=== PATIENT | male | born 1945 | race Caucasian/White ===

== ENCOUNTER 2017-12-06 12:27 | Inpatient (IN) | payer MEDICARE ==
[~2017-12-06] VITALS: Ht 180.3 cm; Wt 77.3 kg
--- NOTE | ~2017-12-06 | PN ---
PATIENT:WINSTON HART MEDICAL RECORD: [id number] LOCATION:[facility] ADMISSION DATE: 12/06/17 PROGRESS NOTE DATE OF SERVICE: 12/18/2017 SUBJECTIVE: No new complaint. OBJECTIVE: The patient is pleasant on approach. Mood is euthymic. Affect is bland. Speech tends to be tangential and circumstantial as usual. Content of thought is unchanged. Sensorium is unchanged. ASSESSMENT: No change in diagnosis. PLAN: 1. Maintain all current medications. 2. Continue supportive therapy. TRANSINT:[id number] Voice Confirmation ID: [id number] DOCUMENT ID: [id number] MALA CLIFTON III, MD at 0911 CC: [id number] DICTATION DATE: 12/18/17 1145 AVIATION SAFETY TECHNICIAN: 12/18/17 1237 ADM IN [place] [id number] [place] [address]
--- NOTE | ~2017-12-06 | PN ---
PATIENT:WINSTON HART MEDICAL RECORD: [id number] LOCATION:[facility] ADMISSION DATE: 12/06/17 PROGRESS NOTE DATE OF SERVICE: 12/09/2017 SUBJECTIVE: No new complaint. OBJECTIVE: The patient has been passively cooperative. Staff report that he has been fairly pleasant. He is quiet most of the time. Additional history obtained states that the patient actually had been at the [facility] psychiatric unit in the past. On exam, mood is euthymic. Affect is very reserved and childlike. Speech is somewhat terse. Content of thought is negative for overt psychosis. There is some nonspecific paranoia. Sensorium shows no change. ASSESSMENT: No change in diagnosis. PLAN: 1. Continue current medication. 2. Continue supportive therapy. TRANSINT:[id number] Voice Confirmation ID: [id number] DOCUMENT ID: [id number] MALA CLIFTON III, MD at 1007 CC: [id number] DICTATION DATE: 12/09/17 1141 PLANT OPERATOR/SHIFT SUPERVISOR: 12/09/17 1149 ADM IN [place] [place] [address]
--- NOTE | ~2017-12-06 | PN ---
PATIENT:WINSTON HART MEDICAL RECORD: [id number] LOCATION:[facility] ADMISSION DATE: 12/06/17 PROGRESS NOTE DATE OF SERVICE: 12/12/2017 SUBJECTIVE: No new complaint noted. OBJECTIVE: The patient continues to do well. Tolerating medications without difficulty. Behavior has been under good control. On exam, mood is euthymic. Affect is reserved. Speech is highly circumstantial. Content of thought continues to exhibit moderate delusional ideation, but the patient does not give evidence of hostility or aggressiveness. Sensorium is unchanged. ASSESSMENT: No change in diagnosis. PLAN: 1. Continue current medication. 2. Continue supportive therapy. TRANSINT:[id number] Voice Confirmation ID: [id number] DOCUMENT ID: [id number] MALA CLIFTON III, MD at 1101 CC: [id number] DICTATION DATE: 12/12/17 1058 STRING STUDIES DIRECTOR: 12/12/17 1125 ADM IN [place] [address] [place] [address]
--- NOTE | ~2017-12-06 | PN ---
PATIENT:WINSTON HART MEDICAL RECORD: [id number] LOCATION:[facility] ADMISSION DATE: 12/06/17 PROGRESS NOTE DATE OF SERVICE: 12/20/2017 SUBJECTIVE: The patient's case was discussed with staff. He has no new complaint. OBJECTIVE: The patient is somewhat paranoid and hypervigilant, but is denying overt psychotic symptoms. He is tolerating his medications well. ASSESSMENT: No change in diagnoses. PLAN: The patient has been living with his sister who is also mentally ill. They do not get along with each other. His niece is willing to let him live with her and he is agreeable to this. She is requesting discharge today and I think that is reasonable as there are no positive symptoms that need to be addressed currently. The negative symptoms are very prominent, but again those are things that have to be treated outside of a hospital setting if they can even be addressed at all. TRANSINT:[id number] Voice Confirmation ID: [id number] DOCUMENT ID: [id number] KEISHA LORENZANA MD at 0949 CC: [id number] DICTATION DATE: 12/20/17 1224 DUTY OFFICER: 12/20/17 1230 DIS IN 12/20/17 [address] [place] [address]
--- NOTE | ~2017-12-06 | PN ---
PATIENT:WINSTON HART MEDICAL RECORD: [id number] LOCATION:[facility] ADMISSION DATE: 12/06/17 PROGRESS NOTE DATE OF SERVICE: 12/19/2017 SUBJECTIVE: No new complaint. OBJECTIVE: The patient continues to do well. We are in the process of securing placement. An attempt will be made at senior care placement. On exam, mood is euthymic. Affect is bland, somewhat constricted. Speech tends to be circumstantial. Content of thought is negative for overt psychosis. Sensorium unchanged. ASSESSMENT: No change in diagnosis. PLAN: 1. Continue current medication. 2. Continue supportive therapy. TRANSINT:[id number] Voice Confirmation ID: [id number] DOCUMENT ID: [id number] MALA CLIFTON III, MD at 1105 CC: [id number] DICTATION DATE: 12/19/17 1107 FINE CRAFT ARTIST: 12/19/17 1123 DIS IN 12/20/17 [place] [address] [place] [address]
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
--- NOTE | ~2017-12-06 | PN ---
PATIENT:WINSTON HART MEDICAL RECORD: [id number] LOCATION:[facility] ADMISSION DATE: 12/06/17 PROGRESS NOTE DATE OF SERVICE: 12/14/2017 SUBJECTIVE: The patient's case was discussed with staff. He has no new complaint. OBJECTIVE: The patient denies intent to harm himself or others. He generally tolerates his medicines well. Eye contact is fair. ASSESSMENT: No change in diagnoses. PLAN: Current medicines and therapies have been reviewed and will be maintained. I anticipate he can be transitioned out of the hospital soon if this level of improvement is maintained. TRANSINT:[id number] Voice Confirmation ID: [id number] DOCUMENT ID: [id number] KEISHA LORENZANA MD at 1417 CC: [id number] DICTATION DATE: 12/14/17 1020 MASH TUB COOKER: 12/14/17 1219 ADM IN [place] [address] [place] [id number]
--- NOTE | ~2017-12-06 | PN ---
PATIENT:WINSTON HART MEDICAL RECORD: [id number] LOCATION:[facility] ADMISSION DATE: 12/06/17 PROGRESS NOTE DATE OF SERVICE: 12/13/2017 SUBJECTIVE: The patient's case was discussed with staff. He has no new complaint. OBJECTIVE: The patient is denying overt psychotic symptoms as well as any paranoid thoughts. He is tolerating his medicines well. ASSESSMENT: No change in diagnoses. PLAN: The patient is in good behavioral control. He has limited insight about his condition. He is tolerating his medicines well. I am not sure about the situation at home if it is an appropriate level of supervision, but I am going to anticipate that he could reasonably be transitioned out of the hospital soon if this level of improvement is maintained. TRANSINT:[id number] Voice Confirmation ID: [id number] DOCUMENT ID: [id number] KEISHA LORENZANA MD at 0956 CC: [id number] DICTATION DATE: 12/13/17 1328 FAMILY PSYCHOLOGIST: 12/13/17 1346 ADM IN [place] [id number] [place] [address]
--- NOTE | ~2017-12-06 | PN ---
PATIENT:WINSTON HART MEDICAL RECORD: [id number] LOCATION:[facility] ADMISSION DATE: 12/06/17 PROGRESS NOTE DATE OF SERVICE: 12/11/2017 SUBJECTIVE: No new complaint. OBJECTIVE: The patient is continuing to do well. He is tolerating medications without difficulty. On exam, mood is euthymic. Affect is bland. Speech is somewhat terse. Content of thought is negative for overt psychosis. Sensorium unchanged. ASSESSMENT: No change in diagnosis. PLAN: 1. Continue current medication. 2. Continue supportive therapy. TRANSINT:[id number] Voice Confirmation ID: [id number] DOCUMENT ID: [id number] MALA CLIFTON III, MD at 1027 CC: [id number] DICTATION DATE: 12/11/17 1055 ENTRY ANALYST: 12/11/17 1115 ADM IN [facility] [address] [place] [address]
--- NOTE | ~2017-12-06 | PN ---
PATIENT:WINSTON HART MEDICAL RECORD: [id number] LOCATION:[facility] ADMISSION DATE: 12/06/17 PROGRESS NOTE DATE OF SERVICE: 12/10/2017 SUBJECTIVE: No new complaint. OBJECTIVE: The patient has remained pleasant and cooperative. He reports that he is no longer having nightmares. His sleep is much improved. On exam today, the patient exhibits a euthymic mood and affect is very constricted. Speech is very circumstantial. Content of thought is negative for overt psychosis. The patient is oriented to time, place and person. Memory appears to be relatively intact. ASSESSMENT: No change in diagnosis. PLAN: 1. Maintain current medication. 2. Anticipate discharge later this week. TRANSINT:[id number] Voice Confirmation ID: [id number] DOCUMENT ID: [id number] MALA CLIFTON III, MD at 0951 CC: [id number] DICTATION DATE: 12/10/17 1116 PROCESS DESIGN CHEMICAL ENGINEER: 12/10/17 1308 ADM IN [place] [id number] [place] [address]
--- NOTE | ~2017-12-06 | DS ---
PATIENT:WINSTON HART :43 MEDICAL RECORD: [id number] DISCHARGE SUMMARY ADMISSION DATE: 12/06/17 DISCHARGE DATE: 12/20/17 DATE OF ADMISSION: 12/06/2017 DATE OF DISCHARGE: 12/20/2017 HISTORY OF PRESENT ILLNESS: First Group Home admission for this 72-year-old single white male. The patient had a previous history of schizophrenia. He had lived with his sister for a number of years. He had been single all of his life. The patient had discontinued his antipsychotic medication several weeks prior to admission and had become increasingly paranoid, agitated and hostile. Because of worsening behavior and the need to readjust medication, the patient was admitted. COURSE IN THE HOSPITAL: The patient was evaluated by Dr. Katy Davies. She noted the presence of hypertension, vitamin D deficiency and type 2 diabetes. From a medication standpoint, the patient was placed back on his Zyprexa 10 mg twice a day. He was given trazodone 100 mg h.s. for insomnia. He was kept on lisinopril 10 mg daily for his hypertension and was also given Dyazide 37.5 one tab daily and Zyrtec for his allergies. The patient showed a good resolution of his hostility and paranoia. He did not give evidence of dementia. He was pleasant and responsive. Typically, his speech was somewhat rambling and usually had to do with memories of his family from the past. At the time of discharge, the patient was felt stable enough to be returned to the outpatient environment. He did not qualify for long-term placement, but the sister is going to look into alternatives. FINAL DIAGNOSES: AXIS I: Schizophrenia, paranoid type. AXIS II: No diagnosis. AXIS III: Hypertension, allergic rhinitis, vitamin D deficiency. AXIS IV: Moderate. AXIS V: 46. PLAN: 1. Continue all current medication. 2. Follow up with primary care at [facility]. 3. Diet and activities as tolerated. TRANSINT:[id number] Voice Confirmation ID: [id number] DOCUMENT ID: [id number] MALA CLIFTON III, MD at 2046 CC: [id number] DICTATION DATE: 01/07/18 1039 GEAR MILLING MACHINE SET UP OPERATOR: 01/07/18 1242 DIS IN 12/20/[id number] [facility] [address]
--- NOTE | ~2017-12-06 | PN ---
PATIENT:WINSTON HART MEDICAL RECORD: [id number] LOCATION:[facility] ADMISSION DATE: 12/06/17 PROGRESS NOTE DATE OF SERVICE: 12/16/2017 SUBJECTIVE: No new complaint. OBJECTIVE: The patient continues to do well. No problems have been noted. He remains cooperative with staff. On exam, mood is pleasant. Affect is bland. Speech is somewhat terse. Content of thought is negative for overt psychosis at the moment. Sensorium is relatively clear. ASSESSMENT: No change in diagnosis. PLAN: 1. Continue current medication. 2. Continue supportive therapy. TRANSINT:[id number] Voice Confirmation ID: [id number] DOCUMENT ID: [id number] MALA CLIFTON III, MD at 0913 CC: [id number] DICTATION DATE: 12/16/17 1158 RESIDENT DIRECTOR: 12/16/17 1222 ADM IN [place] [id number] [place] [id number]
--- NOTE | ~2017-12-06 | PN ---
PATIENT:WINSTON HART MEDICAL RECORD: [id number] LOCATION:[facility] ADMISSION DATE: 12/06/17 PROGRESS NOTE DATE OF SERVICE: 12/17/2017 SUBJECTIVE: No new complaint noted. OBJECTIVE: The patient continues to be cooperative. Discharge planning is actively involved in placement. On exam, mood is euthymic. Affect is rather reserved. Speech tends to be somewhat tangential. Content of thought is unchanged. Sensorium unchanged. ASSESSMENT: No change in diagnosis. PLAN: 1. Continue current medication. 2. Continue supportive therapy. TRANSINT:[id number] Voice Confirmation ID: [id number] DOCUMENT ID: [id number] MALA CLIFTON III, MD at 0625 CC: [id number] DICTATION DATE: 12/17/17 1131 POWER SWEEPER OPERATOR: 12/17/17 1140 ADM IN [place] [id number] [place] [address]
[2017-12-06 13:51] VITALS: BP 154/62; BMI 23.8
[2017-12-06 14:29] VITALS: BMI 23.8
[2017-12-06] MEDS ORDERED: DESERYL100 MG PO (14:57)
[2017-12-06] MEDS ORDERED: DYAZIDE 37.5/251 CAP PO (14:58)
[2017-12-06 14:59] LABS: BASOPHILS 0.2 % (0-2); EOSINOPHILS 4.3 % (0-7); HEMATOCRIT 36.5 % (42.0-54.0); IMMATURE GRANULOCYTES 0.4 % (0-5); LYMPHOCYTES 24.7 % (15-50); MCH 30.4 pg (26.0-34.0); MCHC 32.9 g/dL (31.0-37.0); MCV 92.4 fL (80.0-100.0); MEAN PLATELET VOLUME 9.6 fL (7.4-10.4); MONOCYTES 9.8 % (2-11); NEUTROPHILS 60.6 % (40-80); PLATELET COUNT 222 10x3/uL (130-400); RBC 3.95 10x6/uL (4.20-6.10); RDW 13.2 % (11.5-14.5); WBC 5.3 10x3/uL (4.8-10.8)
[2017-12-06] MEDS ORDERED: ZYPREXA10 MG PO (14:59)
[2017-12-06] MEDS ORDERED: ZYRTEC10 MG PO (15:00)
[2017-12-06 16:23] LABS: APPEARANCE CLEAR (CLEAR); BILIRUBIN NEGATIVE (NEGATIVE); COLOR YELLOW (YELLOW); GLUCOSE NEGATIVE (NEGATIVE); KETONE NEGATIVE (NEGATIVE); NITRITE NEGATIVE (NEGATIVE); PROTEIN NEGATIVE (NEGATIVE); UROBILINOGEN NORMAL (NORMAL)
[2017-12-06 16:24] LABS: ALKALINE PHOSPHATASE 88 U/L (46-116); ALT (SGPT) 25 U/L (10-68); CALC OSMOLALITY 277 mosm/kg (275-300); CARBON DIOXIDE 25.3 mmol/L (21.0-32.0); CHLORIDE - SERUM 100 mmol/L (98-107); CHOL - HDL RATIO 3.3 ratio (2.3-4.9); CHOLESTEROL, TOTAL 151 mg/dL (0-200); GLUCOSE 122 mg/dL (74-106); HDL CHOLESTEROL 46 mg/dL (32-96); LDL CHOLESTEROL 87 mg/dL (0-100); LDL-HDL RATIO 1.9 ratio (1.5-3.5); POTASSIUM - SERUM 4.3 mmol/L (3.5-5.1); PROTEIN - SERUM 7.2 g/dL (6.4-8.2); SODIUM 137 mmol/L (136-145); THYROID STIMULATING HORMONE 0.62 uIU/mL (0.36-3.74); TRIGLYCERIDE 92 mg/dL (30-200); UREA NITROGEN 22 mg/dL (7-18); eGFR NON AFRICAN AMERICAN 78 mL/min (90-120)
[2017-12-06 19:26] VITALS: BP 152/58
[2017-12-07 11:19] VITALS: BMI 23.7
[2017-12-07 12:18] VITALS: BP 130/65
[2017-12-07 19:33] VITALS: BP 107/47
[2017-12-08 07:00] VITALS: BP 150/63
[2017-12-08 20:11] VITALS: BP 155/47
[2017-12-09 07:00] VITALS: BP 145/64
[2017-12-09 08:09] LABS: VITAMIN D 25 HYDROXY 35.9 ng/mL (30.0-100.0)
[2017-12-09 11:14] LABS: FOLATE (FOLIC ACID) - SERUM 12.1 ng/mL (>3.0)
[2017-12-09 19:39] VITALS: BP 165/77
[2017-12-10 03:10] LABS: RAPID PLASMA REAGIN Non Reactive (Non Reactive)
[2017-12-10 09:08] VITALS: BP 145/73
[2017-12-10 19:36] VITALS: BP 126/65
[2017-12-11 10:02] VITALS: BP 146/70
[2017-12-11 19:51] VITALS: BP 153/76
[2017-12-12 10:30] VITALS: BP 137/68
[2017-12-12 20:07] VITALS: BP 154/62
[2017-12-13 09:18] VITALS: BP 149/80
[2017-12-13 09:38] VITALS: BP 149/80
[2017-12-13 19:43] VITALS: BP 172/58
[2017-12-14 10:42] VITALS: BP 121/69
[2017-12-14 20:16] VITALS: BP 124/60
[2017-12-15 08:27] VITALS: BP 119/100
[2017-12-15 19:26] VITALS: BP 122/58
[2017-12-16 07:00] VITALS: BP 149/66
[2017-12-16 19:56] VITALS: BP 125/60
[2017-12-17 07:56] VITALS: BP 113/74
[2017-12-17 19:55] VITALS: BP 142/61
[2017-12-18 09:28] VITALS: BP 124/69
[2017-12-18 19:33] VITALS: BP 137/61
[2017-12-18 19:41] VITALS: BP 137/61
[2017-12-19 08:30] VITALS: BP 112/57
[2017-12-19 21:13] VITALS: BP 132/63
[2017-12-20 08:30] VITALS: BP 131/83
[2017-12-20] MEDS ORDERED: LISINOPRIL10 MG PO (12:17)
[2017-12-20 14:46] VITALS: Ht 180.3 cm; Wt 77.3 kg
== END 2017-12-20 12:56 | disposition home or self-care (01) | DRG 885 ==
LOC: D.PSYCH 12:27
PROVIDERS: Psychiatry & Neurology Psychiatry
DX: F20.0 Paranoid schizophrenia (principal); I10 Essential (primary) hypertension; E55.9 Vitamin D deficiency, unspecified; J30.9 Allergic rhinitis, unspecified; G47.00 Insomnia, unspecified; R23.4 Changes in skin texture; L85.3 Xerosis cutis

== ENCOUNTER 2017-12-30 09:25 | Inpatient (IN) | payer MEDICARE ==
[~2017-12-30] VITALS: Ht 180.3 cm; Wt 83.6 kg
[2017-12-30] VITALS (27 sets, daily range): BP systolic 72–135; BP diastolic 34–91; BMI 25.4
--- NOTE | ~2017-12-30 | HP ---
PATIENT: WINSTON HART MEDICAL RECORD: [id number] ACCOUNT: [id number] LOCATION:[facility] D.2304 : 43 ADMISSION DATE: 12/30/17 HISTORY AND PHYSICAL EXAMINATION DIAGNOSES: 1. Non-Q-wave myocardial infarction. 2. Coronary artery disease. 3. Abnormal ECG. 4. Shortness of breath. 5. Pulmonary edema. HISTORY OF PRESENT ILLNESS: This is a gentleman with no previous cardiac history, no real medical history other than a distant history of asthma, on no medications according to the family who woke up very short of breath, presented to [facility] [facility]. He is felt to be having an acute AR, was given thrombolytic therapy. He has not had any chest pain. He is still not having chest pain, still very short of breath. His chest x-ray from [place] is compatible with pulmonary edema. He has not had an x-ray here yet. His systolic blood pressures in the 130s, heart rate is 102, sinus rhythm. His EKG here continues to have significant ST depression, but no ST elevation. PHYSICAL EXAMINATION: GENERAL APPEARANCE: Well-nourished, well-developed, appears stated age. Level of distress, comfortable. PSYCHIATRIC: Mental status, alert, normal affect. Orientation, oriented to time, place and person. EYES: Lids and conjunctiva, noninjected. No discharge, no pallor. ENT: Lips, teeth, gums, normal dentition. Oropharynx, no cyanosis, no pallor. NECK: Carotid arteries, bilateral normal upstroke, no bruits, no thrills. JUGULAR VEINS: No jugular venous pressure or distention. CERVICAL LYMPH NODES: Nontender, nonenlarged. THYROID: Not enlarged. Nontender. No nodules. LUNGS: Bibasilar crackles. CHEST: Normal curvature. No thoracic deformity. No chest wall tenderness. Percussion, resonant. Auscultation, clear. No wheezes, no rales, no rhonchi. CARDIOVASCULAR: Precordial exam, nondisplaced. No heaves or pericardial thrills. Rate and rhythm, regular. Heart sounds, normal S1, normal S2. No S3, no gallop, no rub. Systolic murmur, not heard. Diastolic murmur, not heard. EXTREMITIES: No cyanosis, no edema. Peripheral pulses, full and equal in all extremities, except as noted. No bruits appreciated. ABDOMEN: Soft, nondistended. Normal aorta. No bruit. Nontender. No masses. Liver, nontender, no hepatomegaly. Spleen, nontender, no splenomegaly. MUSCULOSKELETAL: No joint tenderness. No joint swelling. No erythema. NEUROLOGICAL: Normal gait, normal strength, normal tone. SKIN: Warm and dry. OVERALL IMPRESSION: He is not having an acute ST elevation myocardial infarction, but the troponin is mildly elevated, most likely from ischemia from the shortness of breath and the pulmonary edema. He is clearly in heart failure. We will get an echocardiogram, give IV Lasix, start him on Coreg, pravastatin, aspirin and Plavix. He will need cardiac catheterization in the near future, but it is not emergent at this time. We will consult pulmonary as well to see as he very well may need acute intubation until the pulmonary edema clears. He was given Levaquin. I will leave it up to pulmonary if they want to HISTORY AND PHYSICAL [id number] WINSTON HART continue antibiotic therapy. TRANSINT:[id number] Voice Confirmation ID: [id number] DOCUMENT ID: [id number] PRESTON TOWNSEND MD at 1101 CC: [id number] DICTATION DATE: 12/30/17939 MATHEMATICIAN: 12/30/17 1033 ADM IN [place] [address] [place] [id number]
--- NOTE | ~2017-12-30 | HEMODYNAMI ---
PATIENT:WINSTON HART MEDICAL RECORD: [id number] : 43 LOCATION:[facility] D.2304 ADMISSION DATE: 12/30/17 Generatedon:01/01/20189:18 Patient name: WINSTON HART Patient #: [id number] SSN: D OB: 1945 Date of study: 01/01/2018 Page: Of Hemodynamic Procedure Report Patient Data Patient Demographics Procedure consent was obtained First Name: WINSTON Gender: Male Last Name: HAILEY : 1945 Patient #: [id number] Age: 72 year(s) Race: Unknown Additional ID: [id number] Contact details Address: [place] [address] State: [place] City: [place] Zip code: [address] Admission Admission Data Admission Date: 12/30/2017 Admission Time: 9:25 Room #: 2304 Procedure Procedure Types Cath Procedure Diagnostic Procedure [facility] w/Coronaries PCI Procedure Coronary Stent Coronary Stent Initial Procedure Description Procedure Date Procedure Date: 01/01/2018 Procedure Start Time: 8:47 Procedure End Time: 9:17 Procedure Staff Name Function Oleksandr Hughes MD Performing Physician Valdez Miller RN Nurse Chiquis Ariza RT Scrub David Farrell RT Monitor Procedure Data Cath Procedure Fluoroscopy Diagnostic fluoroscopy Total fluoroscopy Time: 5.6 time: 5.6 min min Diagnostic fluoroscopy Total fluoroscopy dose: 750 dose: 750 mGy mGy Contrast Material Contrast Material Type Amount (ml) Isovue 300 88 Entry Location Entry Primary Successful Side Size Upsize Upsize Entry Closure Succes sful Closure Location (Fr) 1 (Fr) 2 (Fr) Remarks Device Remarks Femoral Right 6 Fr Exoseal artery Short Estimated blood loss: 10 ml Diagnostic catheters Device Type Used For End Catheter Placement DIAGNOSTIC Pigtail 5Fr Procedure catheter ([id number]) Procedure Complications No complications Procedure Medications Medication Administration Route Dosage 0.9% NaCl I.V. 30 ml/hr Oxygen NC 3 l/min Heparin Flush Bag added to field 2 bags (1000units/500ml NS) Lidocaine 2% added to field 20 Versed I.V. 0.5 mg Fentanyl I.V. 25 mcg Oxygen NC 6 l/min Hemodynamics Rest Pre Cath Intra NCS Post Cath Vital Signs Time Heart Resp SPO2 etCO2 NIBP (mmHg) Rhythm Pain Sedation Rate (ipm) (%) (mmHg) Status Level (bpm) 8:30:23 67 21 92 0 127/69(110) NSR 0 (11) 9(A) , No pain 8:35:06 69 25 94 0 122/71(110) NSR 0 (11) 9(A) , No pain 8:39:47 62 15 89 0 115/70(94) NSR 0 (11) 9(A) , No pain 8:44:29 64 27 88 0 116/55(91) NSR 0 (11) 9(A) , No pain 8:49:10 63 15 86 0 101/69(88) NSR 0 (11) 9(A) , No pain 8:53:48 63 16 86 0 108/55(75) NSR 0 (11) 9(A) , No pain 8:58:27 64 31 86 0 104/57(81) NSR 0 (11) 9(A) , No pain 9:02:59 62 15 85 0 110/71(96) NSR 0 (11) 9(A) , No pain 9:07:38 63 14 86 0 98/68(86) NSR 0 (11) 9(A) , No pain 9:12:12 65 17 89 0 111/68(89) NSR 0 (11) 9(A) , No pain 9:16:49 63 15 92 0 109/72(87) NSR 0 (11) 9(A) , No pain Medications Time Medication Route Dose Verified Delivered Reason Notes Effec tiveness by by 8:37:29 0.9% NaCl I.V. 30 Valdez Valdez Per ml/hr Paul Miller physician RN RN 8:37:55 Oxygen NC 3 Valdez Valdez Per l/min Paul Miller physician RN RN 8:38:06 Heparin Flush added 2 Valdez Valdez used for Bag to bags Paul Miller procedure (1000units/500ml field RN RN NS) 8:38:18 Lidocaine 2% added 20ml Valdez Valdez for local to vial Paul Miller anesthetic field RN RN 8:40:59 Versed I.V. 0.5 Valdez Valdez for mg Lorigan Paul sedation RN RN 8:41:08 Fentanyl I.V. 25 Valdez Valdez for mcg Lorigan Paul sedation RN RN 8:57:01 Oxygen NC 6 Valdez Valdez Per l/min Paul Miller physician RN trade sales assistant Log Time Note 8:06:29 Time tracking: Regular hours (M-F 7:00 - 5:00) 8:06:33 Plan of Care:Hemodynamics will remain stable., Cardiac rhythm will remain stable., Comfort level will be maintained., Respiratory function will remain adequate., Patient/ family verbilizes understanding of procedure., Procedure tolerated without complication., Recovers from procedure without complications.. 8:08:47 Chiquis Counts RT(R) sent for patient. Start room use. 8:22:52 Patient received from ICU to CCL 1 Alert and oriented. Tansferred to table in Supine position. 8:22:54 Warm blankets applied, and bonifacio hugger turned on for patient comfort. 8:22:54 Correct patient and procedure confirmed by team. 8:22:56 Signed procedure consent form obtained from patient. 8:22:57 ECG and BP/O2 sat monitors applied to patient. 8:29:30 Vital chart was started 8:29:30 Full Disclosure recording started 8:37:12 Rhythm: sinus rhythm 8:37:29 0.9% NaCl 30 ml/hr I.V. was administered by Valdez Miller RN; Per physician; 8:37:55 Oxygen 3 l/min NC was administered by Valdez Miller RN; Per physician; 8:37:58 H&P Date Dictated: 12/30/2017 Within 30 days and on chart.. 8:37:59 Pre-procedure instructions explained to patient. 8:38:00 Pre-op teaching completed and patient verbalized understanding. 8:38:05 Family in patients room. 8:38:06 Heparin Flush Bag (1000units/500ml NS) 2 bags added to field was administered by Valdez Miller RN; used for procedure; 8:38:07 Patient NPO since Midnight. 8:38:08 Is the patient allergic to Iodine/contrast media? No. 8:38:10 Is patient on blood thinner?Yes 8:38:12 ACC The patient was administered the following blood thiners within the last 24 hours: ACCPlavix 8:38:17 Patient diabetic? No. 8:38:18 Lidocaine 2% 20ml vial added to field was administered by Valdez Miller RN; for local anesthetic; 8:38:21 Previous problem with sedation/anesthesia? No ? 8:38:22 Snore? Yes 8:38:24 Sleep apnea? No 8:38:27 Deviated septum? No 8:38:28 Opens mouth fully? Yes 8:38:28 Sticks out tongue? Yes 8:38:31 Airway obstruction? No ? 8:38:38 Dentures? No ? 8:38:43 Pre procedure: right dorsailis pedis pulse 1+ Palpable, but thready & weak; easily obliterated 8:39:46 Pt arrived with IABP placed in left groin. 8:39:49 Patient pain scale 0/10 ?. 8:40:13 IV patent on arrival in right forearm with 0.9% NaCl at KVO. 8:40:15 Lab results completed and on chart. 8:40:31 Right groin area was prepped with chlora-prep and draped in sterile fashion 8:40:32 Alarms reviewed by R. N. 8:40:32 Sharps counted by scrub and verified by R.N. 8:40:36 --------ALL STOP TIME OUT------ 8:40:36 Final Timeout: patient, procedure, and site verified with staff and physician. All members of the team are in agreement. 8:40:38 Right groin site verified by team. 8:40:41 Physical assessment completed. ASA score P 2 - A patient with mild systemic disease as per Oleksandr Hughes MD. 8:40:45 Sedation plan: IV Moderate Sedation Medication:Versed, Fentanyl 8:40:59 Versed 0.5 mg I.V. was administered by Valdez Miller RN; for sedation; 8:41:08 Fentanyl 25 mcg I.V. was administered by Valdez Miller RN; for sedation; 8:41:38 Use device set Radial Dx or PCI 8:41:41 Use device set TAUTH PCI 8:41:47 ACIST Syringe (88067) opened to sterile field. 8:41:47 Medline Cath Pack ([id number]) opened to sterile field. 8:41:48 Bag Decanter (2001S) opened to sterile field. 8:41:49 ACIST Hand Control (07860) opened to sterile field. 8:41:50 ACIST Manifold (62702) opened to sterile field. 8:42:05 Tegaderm 4 x 4 (1626W) opened to sterile field. 8:42:06 DIAGNOSTIC WIRE .035 260cm J wire (281283) opened to sterile field. 8:42:09 INFLATOR Merit BasixCompak (UK8922) opened to sterile field. 8:42:11 CHOICE PT Extra Support 182cm wire ([id number]) opened to sterile field. 8:42:13 SHEATH Prelude 6Fr 0.035 (OZG-7I-03-035) opened to sterile field. 8:42:27 GUIDE 6FR XBLAD 4.0 catheter ([id number]) opened to sterile field. 8:44:10 Zero performed for pressure channel P1 8:44:13 Zero performed for pressure channel P1 8:47:37 Procedure started. 8:47:49 Local anesthetic to right femoral artery with Lidocaine 2% by Oleksandr Hughes MD.INITIAL ACCESS ONLY 8:49:50 A 6 Fr Short sheath was inserted into the Right Femoral artery 8:50:04 A DIAGNOSTIC Pigtail 5Fr catheter ([id number]) was advanced over the wire and used for Procedure. 8:50:10 LV angiography performed. 8:50:11 LV gram done using HOLMAN 8:50:16 EF : 30 % 8:50:21 Injector settings: Ml/sec: 10, Volume: 20, 8:50:22 Catheter removed. 8:50:29 6 Fr XBLAD 4 guide catheter was inserted over the wire 8:51:17 Choice PT XS wire advanced. 8:51:37 Wire advanced across lesion. 8:52:54 Wire removed, damaged. 8:53:06 CHOICE PT Extra Support 182cm wire ([id number]) opened to sterile field. 8:54:02 New Choice PT XS wire advanced. 8:54:20 Wire advanced across lesion. 8:55:10 The JH RX 3.0 x 12 stent ([id number]) was advanced then removed because of failure to cross lesion 8:55:58 Inflate balloon Inflation number: 1 A EUPHORA 3.0 x 10 balloon ([id number]) was prepped and advanced across the Prox LAD, then inflated to 17 ANDRÉS for 0:10 (min:sec). 8:56:28 Balloon removed over the wire. 8:57:01 Oxygen 6 l/min NC was administered by Valdez Miller RN; Per physician; 8:58:17 Place stent Inflation Number: 2 A JH RX 3.0 x 12 stent ([id number]) was prepped and advanced across the Prox LAD. The stent was deployed at 17 ANDRÉS for 0:10 (min:sec). 8:58:52 Inflation number: 1 The stent balloon was then re-inflated across the Mid LAD1 to 11 ANDRÉS for 0:10 (min:sec). 8:58:54 Stent catheter was removed intact over wire. 9:00:39 Place stent Inflation Number: 2 A JH RX 2.5 x 18 stent ([id number]) was prepped and advanced across the Mid LAD1. The stent was deployed at 17 ANDRÉS for 0:10 (min:sec). 9:00:41 Stent catheter was removed intact over wire. 9:01:36 Place stent Inflation Number: 3 A JH RX 3.0 x 12 stent ([id number]) was prepped and advanced across the Mid LAD1. The stent was deployed at 17 ANDRÉS for 0:10 (min:sec). 9:02:13 Stent catheter was removed intact over wire. 9:02:14 Wire removed. 9:02:15 Guide catheter removed. 9:02:17 EXOSEAL 6Fr (EX600) opened to sterile field. 9:02:36 Sheath removed intact; hemostasis achieved with Exoseal to the Right Femoral artery. 9:06:42 FEMSTOP Gold (X64586) opened to sterile field. 9:13:22 IABP was put on standby. Sutures were removed. IABP and sheath removed. Femstop applied at 130. 9:13:30 Procedure ended.(Physican Out) 9:13:49 Fluoroscopy time 05.60 minutes. ::52 Fluoroscopy dose: 750 mGy 9::52 Flurop Dose total: 750 9:14:03 Contrast amount:Isovue 300 88ml. 9:14:05 Sharps counted by scrub and verified by R.N. 9:14:06 Insertion/operative site no bleeding no hematoma. 9:14:10 Post-op/insertion site Right Femoral artery dressed using a 4 x 4 and Tegaderm. 9:14:15 Post Procedure Pulses reassessed and unchanged 9:14:21 Femstop placed over the left femerol artery at 130 mmHg. Hemostasis achieved. 9:14:34 Post-procedure physical assessment completed. ASA score P 2 - A patient with mild systemic disease as per Oleksandr Hughes MD. 9:14:37 Post procedure rhythm: unchanged. 9:14:40 Estimated blood loss: 10 ml 9:14:42 Post procedure instruction explained to patient.Patient verbalizes understanding. 9:14:43 Patient needs reinforcement of post procedure teaching. 9:15:01 Procedure type changed to Cath procedure, Diagnostic procedure, LHC, LHC w/Coronaries, PCI procedure, Coronary Stent, Coronary Stent Initial 9:16:52 Procedure and supply charges have been captured, reviewed, submitted and are correct. 9:16:55 Procedure Complication : No complications 9:16:57 Vital chart was stopped 9:16:57 See physician's report for complete and final results. 9:16:59 Report given to ICU. 9:17:03 Patient transfered to ICU with Bed. 9:17:05 Procedure ended. 9:17:05 Full Disclosure recording stopped 9:17:31 End room use (Document Last) Intervention Summary Intervention Notes Time ActionType Lesion and Equipment Used Action# Pressure Duration Attributes 8:55:10 Discard JH RX 3.0 x Stent 12 stent ([id number]) 8:55:58 Inflate Prox LAD EUPHORA 3.0 x 1 17 00:10 balloon 10 balloon ([id number]) 8:58:17 Place stent Prox LAD JH RX 3.0 x 2 17 00:10 12 stent ([id number]) 8:58:52 Reinflate Mid LAD1 JH RX 3.0 x 1 11 00:10 stent 12 stent balloon ([id number]) 9:00:39 Place stent Mid LAD1 JH RX 2.5 x 2 17 00:10 18 stent ([id number]) 9:01:36 Place stent Mid LAD1 JH RX 3.0 x 3 17 00:10 12 stent ([id number]) Device Usage Item Name Manufacture Quantity Catalog Number Hospital Part Current Minimal Lot# / Charge Number Stock Stock Serial# Code ACIST Syringe Acist 1 89733 [id number] 428641 [id number] 20 (26556) [employer] Medline Cath Cardinal 1 [id number] 723275 23211 041751 5 Pack Health ([id number]) Bag Decanter Microtek 1 2001S 662249 83425 256740 5 (2001S) Medical Inc. ACIST Hand Acist 1 45799 677904 755681 247515 5 Control (04312) [employer] Inc ACIST Manifold Acist 1 18635 208244 486386 047358 5 (95493) [employer] Inc Tegaderm 4 x 4 3M 1 1626W 653781 123623 348980 5 (1626W) DIAGNOSTIC WIRE St Armando 1 158794 997243 820844 372559 30 .035 260cm J wire (158495) INFLATOR Merit Merit 1 NX1879 955965 501026 071698 15 [facility] [employer] Medical (LJ5680) CHOICE PT Extra [place] 2 [id number] 016453 226494 496863 5 Support 182cm Scientific wire ([id number]) SHEATH Prelude Merit 1 VIU-5R-80-35 191115 2530772 165083 5 6Fr 0.035 Medical (VWO-0X-92-035) GUIDE 6FR XBLAD Cardinal 1 [id number] 354305 533938 763433 3 4.0 catheter Health ([id number]) DIAGNOSTIC Cardinal 1 [id number] 718040 104652 249922 5 Pigtail 5Fr Health catheter (184474Z) JH RX 3.0 x Medtronic 2 [id number] 998510 4232925 183701 5 [id number] 12 stent [id number] ([id number]) EUPHORA 3.0 x Medtronic 1 [id number] 613930 802682 549524 5 10 balloon ([id number]) JH RX 2.5 x Medtronic 1 [id number] 201558 9073719 098285 5 [id number] 18 stent ([id number]) EXOSEAL 6Fr Cardinal 1 EX600 595981 510953 893162 10 (EX600) [facility] 1 [id number] 704442 463066 243772 5 ([id number]) Signature Audit [place] Stage Time Signature Unsigned Intra-Procedure 01/01/2018 David Farrell 9:17:58 AM RT(R) Signatures Monitor : David Farrell RT Signature : Date : Time : [address] [address]
--- NOTE | ~2017-12-30 | EC ---
PATIENT:WINSTON HART DATE OF SERVICE: 12/30/17 SEX: M MEDICAL RECORD: [id number] DATE OF : 43 LOCATION:[facility] D230 AGE OF PATIENT: 72 ADMISSION DATE: 12/30/17 REFERRING PHYSICIAN: INTERPRETING PHYSICIAN: PRESTON TOWNSEND MD ECHOCARDIOGRAM REPORT ECHO CHARGES Date: CLINICAL DIAGNOSIS: ECHOCARDIOGRAPHIC MEASUREMENTS (adult normal given) AC root (d.<3.7cm) cm LV Septum d (<1.2 cm> cm Valve Excursion cm LV Septum (systole) cm Left Atria (s.<4.0cm> cm LVPW d(<1.2cm) cm RV (d.<2.3cm) cm LVPW (sytole) cm LV diastole(<5.6CM) cm MV E-F(>70mm/sec) cm LV systole cm LVOT Diameter cm MV exc.(>10mm) cm Est.ejection fraction (50-75%) % DOPPLER: LVIT cm/sec A cm/sec E cm/sec LA cm/sec RVSP mmHg LVOT cm/sec AOP1/2T m/s Asc. 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 Left ventricular chamber size is mildly dilated. Left ventricular systolic function is moderately reduced, overall ejection fraction 30%. There is definite hypokinesis inferiorly and laterally. 2. Left atrium, right atrium, and right ventricle chamber sizes are within normal limits. ECHOCARDIOGRAM REPORT [id number] WINSTON HART 3. Valvular structures have normal structure and motion. 4. Doppler interrogation reveals moderate mitral regurgitation, no other valvular insufficiency or stenosis. Pulmonary systolic pressure is estimated at 21 mmHg. 5. No evidence of pericardial effusion or left ventricular thrombus. TRANSINT:[id number] Voice Confirmation ID: [id number] DOCUMENT ID: [id number] PRESTON TOWNSEND MD at 1707 CC: [id number] DICTATION DATE: 12/30/17 1156 CERTIFIED BREASTFEEDING EDUCATOR: 12/30/17 1203 ADM IN [address] [place] [address]
--- NOTE | ~2017-12-30 | HEMODYNAMI ---
PATIENT:WINSTON HART MEDICAL RECORD: [id number] : 43 LOCATION:[facility] D.2304 ADMISSION DATE: 12/30/17 Generatedon:12/30/201717:30 Patient name: WINSTON HART Patient #: [id number] SSN: D OB: 1945 Date of study: 12/30/2017 Page: Of Hemodynamic Procedure Report Patient Data Patient Demographics Procedure consent was obtained First Name: WINSTON Gender: Male Last Name: HAILEY : 1945 Patient #: [id number] Age: 72 year(s) Race: Unknown Additional ID: [id number] Contact details Address: [address] [address] State: [place] City: [place] Zip code: [address] Admission Admission Data Admission Date: 12/30/2017 Admission Time: 9:25 Room #: [facility] Procedure Procedure Types Cath Procedure Diagnostic Procedure LHC Coronaries only Intra-Aortic Balloon Pump Sedation Charges Moderate Sedation up to 30 minutes PCI Procedure Coronary Stent Coronary Stent Initial x2 Procedure Description Procedure Date Procedure Date: 12/30/2017 Procedure Start Time: 16:25 Procedure End Time: 17:29 Procedure Staff Name Function Oleksandr Hughes MD Performing Physician Kian Stanton RT Monitor Aftab Gilliland RN Nurse Chiquis Ariza RT Scrub Procedure Data Cath Procedure Fluoroscopy Diagnostic fluoroscopy Total fluoroscopy Time: 7.4 time: 7.4 min min Diagnostic fluoroscopy Total fluoroscopy dose: 988 dose: 988 mGy mGy Contrast Material Contrast Material Type Amount (ml) Isovue 300 101 Entry Location Entry Primary Successful Side Size Upsize Upsize Entry Closure Succes sful Closure Location (Fr) 1 (Fr) 2 (Fr) Remarks Device Remarks Femoral Right 6 Fr Exoseal artery Short Femoral Left 8 Fr Sheath WITH artery sutured IABP in place Femoral Left 6 Fr vein Short Estimated blood loss: 10 ml Diagnostic catheters Device Type Used For End Catheter Placement MULTIPACK JL 4.0 5Fr Left Coronary catheter Angiography MULTIPACK 3DRC 5Fr Right Coronary catheter Angiography Procedure Complications No complications Procedure Medications Medication Administration Route Dosage Oxygen 15 l/min Heparin Flush Bag added to field 2 bags (1000units/500ml NS) 0.9% NaCl I.V. 10 ml/hr Fentanyl I.V. 25 mcg Versed I.V. 0.5 mg Versed I.V. 0.5 mg Heparin Bolus I.V. 5000 units Integrilin (Bolus I.V. 7.3 ml 2mg/ml) Integrilin (Bolus wasted 2.7 ml 2mg/ml) Fentanyl I.V. 25 mcg Heparin Drip I.V. drip 1000 units/hr (51538ikqjv/250 D5W) Fentanyl I.V. 25 mcg Versed I.V. 0.5 mg Fentanyl I.V. 25 mcg Versed I.V. 0.5 mg Hemodynamics Rest Heart Rate: 79 (bpm) Snapshots Pre Cath Intra NCS Post Cath Vital Signs Time Heart Resp SPO2 etCO2 NIBP Rhythm Pain Sedation Rate (ipm) (%) (mmHg) (mmHg) Status Level (bpm) 16:17:41 77 24 86 0 126/80(98) NSR 0 (11) 10(A) , No pain 16:22:18 78 24 83 0 114/69(83) NSR 0 (11) 10(A) , No pain 16:26:52 76 30 82 0 97/60(75) NSR 0 (11) 10(A) , No pain 16:31:29 77 19 92 0 101/64(83) NSR 0 (11) 10(A) , No pain 16:36:09 75 18 94 0 102/56(81) NSR 0 (11) 10(A) , No pain 16:40:50 76 20 95 0 99/59(68) NSR 0 (11) 10(A) , No pain 16:45:22 76 21 95 0 100/69(81) NSR 0 (11) 10(A) , No pain 16:50:05 77 25 96 0 102/46(77) NSR 0 (11) 10(A) , No pain 16:54:45 76 26 97 0 93/56(77) NSR 0 (11) 10(A) , No pain 16:59:59 74 25 100 0 103/56(70) NSR 0 (11) 10(A) , No pain 17:04:38 94 25 100 0 96/56(68) NSR 0 (11) 10(A) , No pain 17:09:14 75 25 100 0 104/61(74) NSR 0 (11) 10(A) , No pain 17:13:57 71 12 99 0 102/50(61) NSR 0 (11) 10(A) , No pain 17:18:39 69 11 94 0 93/47(62) NSR 0 (11) 10(A) , No pain 17:23:14 67 12 95 0 87/59(68) NSR 0 (11) 10(A) , No pain 17:27:50 65 11 95 0 85/48(63) NSR 0 (11) 10(A) , No pain Medications Time Medication Route Dose Verified Delivered Reason N otes Effectiveness by by 16:21:05 Oxygen Oximizer 15 l/min Oleksandr Ugalde Per physician Saul Gilliland RN 16:21:14 Heparin Flush added to 2 bags Oleksandr Ugalde used for Bag field Saul Gilliland RN procedure (1000units/500ml NS) 16:21:21 0.9% NaCl I.V. 10 ml/hr Oleksandr Ugalde Per physician Saul Gilliland RN 16:21:50 Fentanyl I.V. 25 mcg Oleksandr Dalaly for sedation Saul Gilliland RN 16:21:57 Versed I.V. 0.5 mg Oleksandr Dalaly for sedation Saul Gilliland RN 16:24:13 Versed I.V. 0.5 mg Oleksandr Dalaly for sedation Saul Gilliland RN 16:40:18 Heparin Bolus I.V. 5000 Oleksandr Dalaly for units Saul Gilliland RN anticoagulation 16:46:49 Integrilin I.V. 7.3 ml Oleksandr Dalaly for (Bolus 2mg/ml) Saul Gilliland RN antiplatelet therapy 16:47:22 Integrilin wasted 2.7 ml Oleksandr Dalaly for (Bolus 2mg/ml) Saul Gilliland RN antiplatelet therapy 16:54:15 Fentanyl I.V. 25 mcg Oleksandr Aftab for sedation Saul Gilliland RN 16:58:10 Fentanyl I.V. 25 mcg Oleksandr Aftab for sedation Saul Gilliland RN 16:58:17 Versed I.V. 0.5 mg Oleksandr Ugalde for sedation Saul Gilliland RN 17:02:54 Heparin Drip I.V. 1000 Oleksandr Ugalde for (53302kdjoa/250 drip units/hr Saul Gilliland RN anticoagulation D5W) restarted 17:08:22 Fentanyl I.V. 25 mcg Oleksandr Ugalde for sedation Saul Gilliland RN 17:08:27 Versed I.V. 0.5 mg Oleksandr Ugalde for sedation Saul Gilliland RN Procedure Log Time Note 15:41:52 Time tracking: Call back (After hours or weekends) 15:41:56 Plan of Care:Hemodynamics will remain stable., Cardiac rhythm will remain stable., Comfort level will be maintained., Respiratory function will remain adequate., Patient/ family verbilizes understanding of procedure., Procedure tolerated without complication., Recovers from procedure without complications.. 15:42:07 Aftab Gilliland RN sent for patient. Start room use. 16:09:08 Patient received from ICU to [facility] 1 Alert and oriented. Tansferred to table in Supine position. 16:09:09 Warm blankets applied, and bonifacio hugger turned on for patient comfort. 16:09:09 Correct patient and procedure confirmed by team. 16:09:11 Signed procedure consent form obtained from patient. 16:09:11 ECG and BP/O2 sat monitors applied to patient. 16:09:12 Full Disclosure recording started 16:16:54 Vital chart was started 16:18:54 Rhythm: sinus rhythm 16:18:57 Baseline sample Acquired. 16:19:02 H&P Date Dictated: 12/30/2017 Within 30 days and on chart.. 16:19:03 Pre-procedure instructions explained to patient. 16:19:03 Pre-op teaching completed and patient verbalized understanding. 16:19:07 Family in waiting room. 16:19:08 Patient NPO since Midnight. 16:19:38 Is the patient allergic to Iodine/contrast media? No. 16:19:41 Is patient on blood thinner?Yes 16:19:44 ACC The patient was administered the following blood thiners within the last 24 hours: ACCPlavix 16:19:46 Patient diabetic? No. 16:19:49 Previous problem with sedation/anesthesia? No ? 16:19:52 Snore? Yes 16:19:53 Sleep apnea? No 16:19:54 Deviated septum? No 16:19:55 Opens mouth fully? Yes 16:19:55 Sticks out tongue? Yes 16:20:04 Airway obstruction? No ? 16:20:07 Dentures? No ? 16:20:10 Pre procedure: right dorsailis pedis pulse 2+ Normal; easily identifiable; not easily obliterated 16:20:12 Patient pain scale 0/10 ?. 16:20:21 IV patent on arrival in right forearm with 0.9% NaCl at [facility]. 16:20:23 Lab results completed and on chart. 16:20:27 Right groin area was prepped with chlora-prep and draped in sterile fashion 16:20:27 Alarms reviewed by R. N. 16:20:28 Sharps counted by scrub and verified by R.N. 16:20:29 Final Timeout: patient, procedure, and site verified with staff and physician. All members of the team are in agreement. 16:20:30 Right groin site verified by team. 16:20:34 Physical assessment completed. ASA score P 4 - A patient with severe systemic disease that is a constant threat to life as per Oleksnadr Hughes MD. 16:20:37 Sedation plan: IV Moderate Sedation Medication:Versed, Fentanyl 16:21:05 Oxygen 15 l/min Oximizer was administered by Aftab Gilliland RN; Per physician; 16:21:14 Heparin Flush Bag (1000units/500ml NS) 2 bags added to field was administered by Aftab Gilliland RN; used for procedure; 16:21:16 Use device set Femoral Dx 16:21:17 ACIST Syringe (05631) opened to sterile field. 16:21:18 Bag Decanter (2001S) opened to sterile field. 16:21:18 Medline Cath Pack ([id number]) opened to sterile field. 16:21:19 DIAGNOSTIC WIRE .035 260cm J wire (473892) opened to sterile field. 16:21:20 ACIST Hand Control (73766) opened to sterile field. 16:21:20 ACIST Manifold (67643) opened to sterile field. 16:21:21 0.9% NaCl 10 ml/hr I.V. was administered by Aftab Gilliland RN; Per physician; 16:21:21 DIAGNOSTIC Multipack 5Fr catheter set (QF2610) opened to sterile field. 16:21:21 Tegaderm 4 x 4 (1626W) opened to sterile field. 16:21:31 SHEATH Prelude 6Fr 0.035 (BYM-7M-31-035) opened to sterile field. 16:21:50 Fentanyl 25 mcg I.V. was administered by Aftab Gilliland RN; for sedation; 16::57 Versed 0.5 mg I.V. was administered by Aftab Gilliland RN; for sedation; 16:24:13 Versed 0.5 mg I.V. was administered by Aftab Gilliland RN; for sedation; 16:24:40 Procedure started. 16:25:00 Local anesthetic to right femoral artery with Lidocaine 2% by Oleksandr Hughes MD.INITIAL ACCESS ONLY 16:25:27 A 6 Fr Short sheath was inserted into the Right Femoral artery 16:25:29 Zero performed for pressure channel P1 16:25:33 Zero performed for pressure channel P1 16:26:10 A MULTIPACK JL 4.0 5Fr catheter was advanced over the wire and used for Left Coronary Angiography. 16:26:38 Catheter removed. 16:26:50 A MULTIPACK 3DRC 5Fr catheter was advanced over the wire and used for Right Coronary Angiography. 16:27:00 Use device set TAU PCI 16:27:09 INFLATOR Merit BasixCompak (OW6454) opened to sterile field. 16:27:15 CHOICE PT Extra Support 182cm wire ([id number]) opened to sterile field. 16:38:00 Left groin area was prepped with chlora-prep and draped in sterile fashion 16:38:12 Local anesthetic to left femerol artery with Lidocaine 2% by Oleksandr Hughes MD.ADDITIONAL ACCESS 16:38:15 A 6 Fr Short sheath was inserted into the Left Femoral vein 16:38:31 IABP 34cm balloon catheter ([id number]) opened to sterile field. 16:39:02 GUIDE 6FR XBLAD 4.0 SH catheter (55754546) opened to sterile field. 16:39:05 TUBING High Pressure Extension (IABP) opened to sterile field. 16:39:[address] Armando (080058) opened to sterile field. 16:39:44 A 8 Fr sheath was inserted into the Left Femoral artery 16:39:55 34cc IABP inserted into the LFA . 16:39:56 Augmentation: 1:1 per physician. 16:39:58 Trigger: Pressure 16:40:18 Heparin Bolus 5000 units I.V. was administered by Aftab Gilliland RN; for anticoagulation; 16:42:58 SHEATH Prelude 6Fr 0.035 (PHV-3D-35-035) opened to sterile field. 16:46:05 6 Fr XBLAD 4.0 SH guide catheter was inserted over the wire 16:46:49 Integrilin (Bolus 2mg/ml) 7.3 ml I.V. was administered by Aftab Gilliland RN; for antiplatelet therapy; 16:47:22 Integrilin (Bolus 2mg/ml) 2.7 ml wasted was administered by Aftab Gilliland RN; for antiplatelet therapy; 16:47:45 CHOICE PT ES wire advanced. 16:48:15 Inflate balloon Inflation number: 1 A EMERGE OTW 3.0 x 15 balloon ([id number]) was prepped and advanced across the LMCA, then inflated to 13 ANDRÉS for 0:06 (min:sec). 16:48:22 Inflation number: 2 The EMERGE OTW 3.0 x 15 balloon ([id number]) was reinflated across the LMCA, to 13 ANDRÉS for 0:04 (min:sec). 16:49:00 Balloon removed over the wire. 16:50:52 Place stent Inflation Number: 3 A JH RX 3.5 x 15 stent ([id number]) was prepped and advanced across the LMCA. The stent was deployed at 17 ANDRÉS for 0:04 (min:sec). 16:52:02 Stent catheter was removed intact over wire. 16:52:19 SHORT CHOICE PT ES TO CIRC wire advanced. 16:52:33 CHOICE PT Extra Support J 300cm guide wire ([id number]) opened to sterile field. 16:54:15 Fentanyl 25 mcg I.V. was administered by Aftab Gilliland RN; for sedation; 16:54:21 Inflate balloon Inflation number: 1 A EUPHORA 2.5 x 12 Balloon ([id number]) was prepped and advanced across the Prox CX, then inflated to 21 ANDRÉS for 0:06 (min:sec). 16:54:31 Balloon removed over the wire. 16:56:46 Place stent Inflation Number: 2 A JH RX 3.5 x 12 stent ([id number]) was prepped and advanced across the Prox CX. The stent was deployed at 17 ANDRÉS for 0:10 (min:sec). 16:57:03 Stent catheter was removed intact over wire. 16:57:14 WIRE REMOVED FROM CX 16:58:02 WIRE REMOVED FROM LAD 16:58:04 Guide catheter removed. 16:58:10 Fentanyl 25 mcg I.V. was administered by Aftab Gilliland RN; for sedation; 16:58:14 Sheath removed intact; hemostasis achieved with Exoseal to the Right Femoral artery. 16:58:17 Versed 0.5 mg I.V. was administered by Aftab Gilliland RN; for sedation; 16:58:21 EXOSEAL 6Fr (EX600) opened to sterile field. 16:59:50 Procedure ended.(Physican Out) 17:00:40 Sheath removed intact; hemostasis achieved with Sheath sutured in place to the Left Femoral artery. 17:01:[address] WITH 2-0 SILK IN LSFA 17:01:46 Contrast amount:Isovue 300 101ml. 17:02:29 HEPARIN DRIP RESTARTED BY AFTAB GILLILAND RN 17:02:45 IV Extension Set opened to sterile field. 17:02:54 Heparin Drip (14356ocmxb/250 D5W) 1000 units/hr I.V. drip was administered by Aftab Gillialnd RN; for anticoagulation restarted; 17:05:35 Procedure type changed to Cath procedure, Diagnostic procedure, LHC, Coronaries only, Intra-Aortic Balloon Pump, Sedation Charges, Moderate Sedation up to 30 minutes, PCI procedure, Coronary Stent, Coronary Stent Initial x2 17:07:34 2-0 Silk 685H opened to sterile field. 17:07:35 2-0 Silk 685H opened to sterile field. 17:08:22 Fentanyl 25 mcg I.V. was administered by Aftab Gilliland RN; for sedation; 17:08:27 Versed 0.5 mg I.V. was administered by Aftab Gilliland RN; for sedation; 17:08:44 Insertion/operative site no bleeding no hematoma. 17:08:49 Post-op/insertion site Right Femoral artery dressed using a 4 x 4 and Tegaderm. 17:08:54 Post right femoral artery:stable, clean and dry 17:09:02 Sharps counted by scrub and verified by R.N. 17:09:06 Post Procedure Pulses reassessed and unchanged 17:09:14 Insertion/operative site no bleeding no hematoma. 17:09:26 Post-op/insertion site Left Femoral artery dressed using a 4 x 4 and Tegaderm. 17:09:32 Post left femerol artery:stable, clean and dry 17:09:38 Post-procedure physical assessment completed. ASA score P 4 - A patient with severe systemic disease that is a constant threat to life as per Oleksandr Hughes MD. 17:09:42 Post procedure rhythm: unchanged. 17:09:45 Estimated blood loss: 10 ml 17:09:47 Post procedure instruction explained to patient.Patient verbalizes understanding. 17:09:48 Patient needs reinforcement of post procedure teaching. 17:09:53 Procedure Complication : No complications 17:10:00 See physician's report for complete and final results. 17:27:45 Tegaderm 4 x 4 (1626W) opened to sterile field. 17:27:47 Tegaderm 4 x 4 (1626W) opened to sterile field. 17:27:48 Tegaderm 4 x 4 (1626W) opened to sterile field. 17:29:05 Fluoroscopy time 07.40 minutes. 17:29:08 Fluoroscopy dose: 988 mGy 17:29:08 Flurop Dose total: 988 17:29:10 Procedure and supply charges have been captured, reviewed, submitted and are correct. 17:29:30 Vital chart was stopped 17:29:32 Report given to ICU. 17:29:35 Patient transfered to ICU with Bed. 17:29:39 Procedure ended. 17:29:39 Full Disclosure recording stopped 17:29:43 End room use (Document Last) Intervention Summary Intervention Notes Time ActionType Lesion and Equipment Used Action# Pressure Duration Attributes 16:48:15 Inflate LMCA EMERGE OTW 3.0 1 13 00:06 balloon x 15 balloon ([id number]) 16:48:22 Reinflate LMCA EMERGE OTW 3.0 2 13 00:04 balloon x 15 balloon ([id number]) 16:50:52 Place stent LMCA JH RX 3.5 x 3 17 00:04 15 stent ([id number]) 16:54:21 Inflate Prox CX EUPHORA 2.5 x 1 21 00:06 balloon 12 Balloon ([id number]) 16:56:46 Place stent Prox CX JH RX 3.5 x 2 17 00:10 12 stent ([id number]) Device Usage Item Name Manufacture Quantity Catalog Number [facility] Part [facility] nt Minimal Lot# / Charge Number Stock Stock Serial# Code ACIST Syringe Acist 1 00872 367377 225312 92858 6 20 (79356) Medical Systems Inc Bag Decanter Microtek 1 2001S 313160 12933 29577 8 5 () Medical Inc. Medline Cath Cardinal 1 [id number] 548112 54871 78038 2 5 Pack Health ([id number]) DIAGNOSTIC WIRE St Armando 1 597668 741200 557343 75158 4 30 .035 260cm J wire (426904) ACIST Hand Acist 1 01003 484118 920787 70006 8 5 Control (32332) Medical Systems Inc ACIST Manifold Acist 1 95290 070696 256905 45078 5 5 (03346) Medical Systems Inc DIAGNOSTIC Cardinal 1 EH3138 215595 33512 30689 4 30 Multipack 5Fr Health catheter set (CY9022) Tegaderm 4 x 4 3M 4 1626W 711712 093831 43580 5 5 (1626W) SHEATH Prelude Merit 2 FFJ-6A-56-35 692002 9824777 89155 6 5 6Fr 0.035 Medical (PPQ-6Y-07-035) MULTIPACK JL Cardinal 1 21856 6 5 4.0 5Fr Health catheter MULTIPACK 3DRC Cardinal 1 55870 1 5 5Fr catheter Health INFLATOR Merit Merit 1 OF9591 177227 109979 32917 6 15 CogniSens (ZW5953) CHOICE PT Extra Beaumont 1 [id number] 996931 614873 09949 0 5 Support 182cm Scientific wire (6725434H6) IABP 34cm [facility] 1 8863-00-4195-01U 810566 441301 83668 6 1 ZAPR [facility] catheter (532878) ([id number]) GUIDE 6FR XBLAD Cardinal 1 00354678 499969 3872 15765 6 3 4.0 catheter Health (58621975) TUBING High Merit 1 [id number] 523846 438385 11 5 Pressure Medical Extension (IABP) SHEATH 8FR [facility] Armando 1 533619 696796 064111 34304 2 5 Armando (412917) EMERGE OTW 3.0 Beaumont 1 [id number] 831607 809451 21031 0 5 54525547 x 15 balloon Scientific (0304991703) JH RX 3.5 x Medtronic 1 [id number] 966241 0506939 40833 2 5 [id number] 15 stent ([id number]) CHOICE PT Extra [place] 1 [id number] 797823 401441 91395 2 5 Support J 300cm Scientific guide wire (7700913Z6) EUPHORA 2.5 x Medtronic 1 [id number] 236695 427650 43959 6 5 [id number] 12 Balloon ([id number]) JH RX 3.5 x Medtronic 1 [id number] 476875 0034042 64138 3 5 [id number] 12 stent ([id number]) EXOSEAL 6Fr Cardinal 1 EX600 270381 337246 95437 3 10 (EX600) Health IV Extension Hospira 1 77700-16 339315 20084 63382 7 5 Set 2-0 Silk 685H Ethicon 2 685H 550572 66879 71419 7 5 Signature Audit [place] Stage Time Signature Unsigned Intra-Procedure 12/30/2017 Chiquis 5:30:25 PM Counts RT(R) Signatures Monitor : Kian Stanton RT Signature : Date : Time : [facility] [address] [facility] [place] [address]
--- NOTE | ~2017-12-30 | EC ---
PATIENT:WINSTON HART DATE OF SERVICE: 12/30/17 SEX: M MEDICAL RECORD: [id number] DATE OF : 43 LOCATION:D.M2 D.211 AGE OF PATIENT: 72 ADMISSION DATE: 12/30/17 REFERRING PHYSICIAN: INTERPRETING PHYSICIAN: PRESTON HUGHES MD ECHOCARDIOGRAM REPORT ECHO CHARGES 5 ECHO LIMITED Date: 01/05 CLINICAL DIAGNOSIS: ASSESS EF ECHOCARDIOGRAPHIC MEASUREMENTS (adult normal given) AC root (d.<3.7cm) 4.6 cm LV Septum d (<1.2 cm> 1.5 cm Valve Excursion 1.6 cm LV Septum (systole) 1.7 cm Left Atria (s.<4.0cm> 3.7 cm LVPW d(<1.2cm) 1.5 cm RV (d.<2.3cm) 3.3 cm LVPW (sytole) 1.7 cm LV diastole(<5.6CM) 5.7 cm MV E-F(>70mm/sec) 1.7 cm LV systole 3.6 cm LVOT Diameter 1.7 cm MV exc.(>10mm) cm Est.ejection fraction (50-75%) % DOPPLER: LVIT cm/sec A 48 cm/sec E 101 cm/sec LA cm/sec RVSP 21.0 mmHg LVOT 127 cm/sec AOP1/2T m/s Asc. Ao 129 cm/sec RVOT 95 cm/sec RA cm/sec PA 97 cm/sec AV Gradient Peak 6.7 mmHg AV Mean 4.1 mmHg AV Area 2.5 cm MV Gradient Peak 5.4 mmHg MV Mean 1.8 mmHg MV Area cm COMMENTS: Field Examiner: 2 PASTORA CANALES Audio Visual Aids Director: 1 Dr. Hughes TAPE# PACS Pericardial Effusion N DATE OF SERVICE: 01/05/2018 LIMITED ECHOCARDIOGRAM FOR EJECTION FRACTION Left ventricular chamber size is within normal limits. Left ventricular systolic function is markedly improved from last evaluation. Ejection fraction in the 45% to 50% range. TRANSINT:[id number] Voice Confirmation ID: [id number] DOCUMENT ID: [id number] ECHOCARDIOGRAM REPORT [id number] WINSTON HART PRESTON HUGHES MD at 1325 CC: [id number] DICTATION DATE: 01/05/18 1253 MOTORCYCLE TESTER: 01/05/18 1359 DIS IN 01/06/[address] [facility] [address] [place] [address]
--- NOTE | ~2017-12-30 | DS ---
PATIENT:WINSTON RUSSO :43 MEDICAL RECORD: [id number] DISCHARGE SUMMARY ADMISSION DATE: 12/30/17 DISCHARGE DATE: 01/06/18 DATE OF DISCHARGE: 01/05/2018. DIAGNOSES: 1. Myocardial infarction. 2. Coronary artery disease. 3. Percutaneous transluminal coronary angioplasty stent to left anterior descending and left main. 4. Cardiomyopathy. 5. Congestive heart failure. HOSPITAL COURSE: Mr. Russo presents with shortness of breath and chest pain, was found to be in heart failure, was also found to have a 99% left main as well as significant disease of the LAD, underwent successful PTCA stent of these territories. His ejection fraction went from 20% up to 45%. His heart failure cleared. He was sent to the rehab floor from the acute care setting with aspirin, Plavix, pravastatin, carvedilol. He will follow up with [facility] in 1 month after his stay in rehabilitation. TRANSINT:[id number] Voice Confirmation ID: [id number] DOCUMENT ID: [id number] PRESTON TOWNSEND MD at 1325 CC: [id number] DICTATION DATE: 01/08/18 1015 SERVICE OBSERVER: 01/08/18 1136 DIS IN 01/06/18 [id number] [place] [address]
--- NOTE | ~2017-12-30 | OP ---
PATIENT NAME: WINSTON HART MEDICAL RECORD: [id number] :43 LOCATION[facility] D.2304 ADMISSION DATE:12/30/17 SURGEON: PRESTON TOWNSEND MD DATE OF OPERATION: 01/01/2018 PROCEDURES: 1. PTCA stent LAD. 2. Selective coronary angiography. 3. Intraaortic balloon pump removal. INDICATION: Myocardial infarction, coronary artery disease, cardiomyopathy, congestive heart failure. PROCEDURE IN DETAIL: After informed consent was obtained and after a detailed description of risks, benefits as well as alternative therapies, the patient elected to proceed with angiogram and angioplasty. The right femoral area was prepped and draped in normal sterile fashion. The right femoral artery was cannulated via modified Seldinger technique with placement of 6-Sinhala sheath. All catheters exchanged through this sheath. At the end of the case, all catheters removed, sheaths were also removed. Hemostasis was noted via ExoSeal and direct compression. He tolerated the procedure well with no complications and returned back to the room in stable condition. There was a balloon pump previously placed in the left groin. This was removed and FemoStop was placed for adequate hemostasis. FINDINGS: The left anterior descending has multiple areas of 80% to 90% stenosis throughout the mid vessel. This was addressed with a 3.0 x 12, 3.0 x 12, 2.5 x 18 all Neal stents. Result was 0% residual stenosis. OVERALL IMPRESSION: Successful percutaneous transluminal coronary angioplasty stent of the left anterior descending going from multiple areas of 90% initial stenosis to 0% residual. TRANSINT:[id number] Voice Confirmation ID: [id number] DOCUMENT ID: [id number] PRESTON TOWNSEND MD at 1230 CC: [id number] DICTATION DATE: 01/01/18 0910 DIRECTOR PERSONAL: 01/01/18 1123 ADM IN [address] [place] [address]
[~2017-12-30 09:25] MED LIST: DESERYL100 MG PO; DYAZIDE 37.5/251 CAP PO; LISINOPRIL10 MG PO; ZYPREXA10 MG PO; ZYRTEC10 MG PO
[2017-12-30] MEDS ORDERED: TERAZOSIN HCL2 MG (11:03)
[2017-12-30 16:04] LABS: ANION GAP 14.2 mmol/L (8-16); CALCIUM 8.4 mg/dL (8.5-10.1); CARBON DIOXIDE 26.2 mmol/L (21.0-32.0); CREATININE - SERUM 1.3 mg/dL (0.6-1.3); POTASSIUM - SERUM 4.4 mmol/L (3.5-5.1)
[2017-12-31] VITALS (89 sets, daily range): BP systolic 79–114; BP diastolic 45–73; Ht 180.3 cm; Wt 83.6 kg
[2017-12-31 04:52] LABS: BASOPHILS 0 % (0-2); EOSINOPHILS 0 % (0-7); HEMATOCRIT 36.9 % (42.0-54.0); IMMATURE GRANULOCYTES 0.2 % (0-5); LYMPHOCYTES 4.8 % (15-50); MCHC 32.5 g/dL (31.0-37.0); MCV 92.3 fL (80.0-100.0); MEAN PLATELET VOLUME 10.6 fL (7.4-10.4); MONOCYTES 5.1 % (2-11); NEUTROPHILS 89.9 % (40-80); PLATELET COUNT 211 10x3/uL (130-400); RDW 13.6 % (11.5-14.5); WBC 17.8 10x3/uL (4.8-10.8)
[2017-12-31 04:59] LABS: INR 1.23 (0.85-1.17); PROTIME 15.1 SECONDS (11.6-15.0)
[2017-12-31 05:20] LABS: ALBUMIN 2.9 g/dL (3.4-5.0); BILIRUBIN - TOTAL 0.45 mg/dL (0.2-1.3); CALCIUM 8.2 mg/dL (8.5-10.1); CARBON DIOXIDE 31.8 mmol/L (21.0-32.0); CREATININE - SERUM 1.3 mg/dL (0.6-1.3); POTASSIUM - SERUM 3.8 mmol/L (3.5-5.1); PROTEIN - SERUM 6.4 g/dL (6.4-8.2)
[2017-12-31 06:28] LABS: TROPONIN-I 347.766 ng/mL (0.000-0.060)
[2018-01-01] VITALS (58 sets, daily range): BP systolic 91–127; BP diastolic 51–97
[2018-01-01 04:26] LABS: BASOPHILS 0 % (0-2); EOSINOPHILS 0.1 % (0-7); HEMOGLOBIN 10.2 g/dL (13.5-17.5); IMMATURE GRANULOCYTES 0.3 % (0-5); LYMPHOCYTES 8.5 % (15-50); MCH 29.9 pg (26.0-34.0); MCHC 32.9 g/dL (31.0-37.0); MCV 90.9 fL (80.0-100.0); MEAN PLATELET VOLUME 10.4 fL (7.4-10.4); MONOCYTES 8.8 % (2-11); NEUTROPHILS 82.3 % (40-80); PLATELET COUNT 171 10x3/uL (130-400); RBC 3.41 10x6/uL (4.20-6.10); RDW 13.6 % (11.5-14.5); WBC 13.6 10x3/uL (4.8-10.8)
[2018-01-01 05:01] LABS: ALBUMIN 2.5 g/dL (3.4-5.0); ANION GAP 5.3 mmol/L (8-16); BILIRUBIN - TOTAL 0.44 mg/dL (0.2-1.3); CALCIUM 7.8 mg/dL (8.5-10.1); CARBON DIOXIDE 32.3 mmol/L (21.0-32.0); CREATININE - SERUM 1.2 mg/dL (0.6-1.3); PHOSPHOROUS 2.6 mg/dL (2.5-4.9); POTASSIUM - SERUM 3.6 mmol/L (3.5-5.1); PROTEIN - SERUM 5.6 g/dL (6.4-8.2)
[2018-01-02] VITALS (24 sets, daily range): BP systolic 108–147; BP diastolic 56–85
[2018-01-02 02:17] LABS: BASOPHILS 0 % (0-2); EOSINOPHILS 0.5 % (0-7); HEMATOCRIT 29.8 % (42.0-54.0); HEMOGLOBIN 9.7 g/dL (13.5-17.5); IMMATURE GRANULOCYTES 0.3 % (0-5); LYMPHOCYTES 7.6 % (15-50); MCH 29.8 pg (26.0-34.0); MCHC 32.6 g/dL (31.0-37.0); MCV 91.4 fL (80.0-100.0); MEAN PLATELET VOLUME 9.9 fL (7.4-10.4); MONOCYTES 9.3 % (2-11); NEUTROPHILS 82.3 % (40-80); PLATELET COUNT 161 10x3/uL (130-400); RBC 3.26 10x6/uL (4.20-6.10); RDW 13.7 % (11.5-14.5)
[2018-01-02 02:18] LABS: WBC 9.9 10x3/uL (4.8-10.8)
[2018-01-02 02:42] LABS: % SATURATION 18 % (15-55); IRON 35 ug/dl (35-150); TOTAL IRON BIND CAPACITY 194 ug/dl (260-445); UNSAT IRON BIND CAPACITY 159 ug/dl (150-375)
[2018-01-02 03:07] LABS: CALC OSMOLALITY 270 mosm/kg (275-300); CALCIUM 7.6 mg/dL (8.5-10.1); CARBON DIOXIDE 31.3 mmol/L (21.0-32.0); CHLORIDE - SERUM 99 mmol/L (98-107); FERRITIN 147 ng/mL (3-244); GLUCOSE 128 mg/dL (74-106); MAGNESIUM - SERUM 2.2 mg/dL (1.8-2.4); PHOSPHOROUS 2.2 mg/dL (2.5-4.9); POTASSIUM - SERUM 3.7 mmol/L (3.5-5.1); SODIUM 132 mmol/L (136-145); UREA NITROGEN 24 mg/dL (7-18); VANCOMYCIN - TROUGH 10.2 ug/mL (10.0-20.0); eGFR NON AFRICAN AMERICAN 78 mL/min (90-120)
[2018-01-03] VITALS (16 sets, daily range): BP systolic 106–142; BP diastolic 59–70
[2018-01-03 03:34] LABS: BASOPHILS 0 % (0-2); EOSINOPHILS 1.4 % (0-7); HEMATOCRIT 28.6 % (42.0-54.0); HEMOGLOBIN 9.3 g/dL (13.5-17.5); IMMATURE GRANULOCYTES 0.2 % (0-5); LYMPHOCYTES 12.3 % (15-50); MCHC 32.5 g/dL (31.0-37.0); MCV 92.3 fL (80.0-100.0); MEAN PLATELET VOLUME 10.4 fL (7.4-10.4); MONOCYTES 8.8 % (2-11); NEUTROPHILS 77.3 % (40-80); PLATELET COUNT 160 10x3/uL (130-400); RDW 13.8 % (11.5-14.5); WBC 8.6 10x3/uL (4.8-10.8)
[2018-01-03 03:55] LABS: ALBUMIN 2.4 g/dL (3.4-5.0); ALKALINE PHOSPHATASE 53 U/L (46-116); BILIRUBIN - TOTAL 0.56 mg/dL (0.2-1.3); CALCIUM 7.6 mg/dL (8.5-10.1); CARBON DIOXIDE 31.6 mmol/L (21.0-32.0); CHLORIDE - SERUM 102 mmol/L (98-107); CREATININE - SERUM 0.8 mg/dL (0.6-1.3); GLUCOSE 119 mg/dL (74-106); MAGNESIUM - SERUM 2.2 mg/dL (1.8-2.4); PHOSPHOROUS 2.3 mg/dL (2.5-4.9); POTASSIUM - SERUM 3.9 mmol/L (3.5-5.1); PROTEIN - SERUM 5.6 g/dL (6.4-8.2); SODIUM 137 mmol/L (136-145); eGFR NON AFRICAN AMERICAN > 90 mL/min (90-120)
[2018-01-03 03:58] LABS: ALT (SGPT) 57 U/L (10-68); CALC OSMOLALITY 276 mosm/kg (275-300); UREA NITROGEN 17 mg/dL (7-18)
[2018-01-04] VITALS: BP 118/58
[2018-01-04 04:00] VITALS: BP 111/66
[2018-01-04 05:07] LABS: BASOPHILS 0 % (0-2); EOSINOPHILS 3.5 % (0-7); HEMOGLOBIN 9.4 g/dL (13.5-17.5); IMMATURE GRANULOCYTES 0.2 % (0-5); LYMPHOCYTES 12.7 % (15-50); MCH 29.7 pg (26.0-34.0); MCHC 32.4 g/dL (31.0-37.0); MCV 91.5 fL (80.0-100.0); MONOCYTES 10.7 % (2-11); NEUTROPHILS 72.9 % (40-80); PLATELET COUNT 185 10x3/uL (130-400); RBC 3.17 10x6/uL (4.20-6.10); RDW 13.6 % (11.5-14.5); WBC 8.3 10x3/uL (4.8-10.8)
[2018-01-04 05:33] LABS: CALC OSMOLALITY 272 mosm/kg (275-300); CALCIUM 8.1 mg/dL (8.5-10.1); CARBON DIOXIDE 30.3 mmol/L (21.0-32.0); CHLORIDE - SERUM 102 mmol/L (98-107); CREATININE - SERUM 0.8 mg/dL (0.6-1.3); GLUCOSE 124 mg/dL (74-106); POTASSIUM - SERUM 3.9 mmol/L (3.5-5.1); SODIUM 135 mmol/L (136-145); UREA NITROGEN 18 mg/dL (7-18); eGFR NON AFRICAN AMERICAN > 90 mL/min (90-120)
[2018-01-04 09:13] VITALS: BP 117/54
[2018-01-04 12:34] VITALS: BP 113/62
[2018-01-04 16:38] VITALS: BP 134/71
[2018-01-04 21:26] VITALS: BP 120/60
[2018-01-05 00:45] VITALS: BP 118/64
[2018-01-05 06:29] VITALS: BP 114/58
[2018-01-05 08:57] VITALS: BP 121/67
[2018-01-05 12:33] VITALS: BP 126/60
[2018-01-05 16:08] VITALS: BP 144/67
[2018-01-06] VITALS: BP 122/60
[2018-01-06 04:00] VITALS: BP 115/56
[2018-01-06 08:13] LABS: BASOPHILS 0.1 % (0-2); EOSINOPHILS 4.9 % (0-7); HEMATOCRIT 29.5 % (42.0-54.0); HEMOGLOBIN 9.2 g/dL (13.5-17.5); IMMATURE GRANULOCYTES 0.3 % (0-5); LYMPHOCYTES 10.2 % (15-50); MCH 29.5 pg (26.0-34.0); MCHC 31.2 g/dL (31.0-37.0); MCV 94.6 fL (80.0-100.0); MONOCYTES 9.1 % (2-11); NEUTROPHILS 75.4 % (40-80); PLATELET COUNT 207 10x3/uL (130-400); RBC 3.12 10x6/uL (4.20-6.10); RDW 13.9 % (11.5-14.5); WBC 9.1 10x3/uL (4.8-10.8)
[2018-01-06 08:34] LABS: ALBUMIN 2.6 g/dL (3.4-5.0); ALKALINE PHOSPHATASE 68 U/L (46-116); ALT (SGPT) 44 U/L (10-68); BILIRUBIN - TOTAL 0.62 mg/dL (0.2-1.3); CALC OSMOLALITY 271 mosm/kg (275-300); CALCIUM 8.4 mg/dL (8.5-10.1); CARBON DIOXIDE 34.7 mmol/L (21.0-32.0); CHLORIDE - SERUM 102 mmol/L (98-107); CREATININE - SERUM 0.8 mg/dL (0.6-1.3); GLUCOSE 122 mg/dL (74-106); POTASSIUM - SERUM 4.5 mmol/L (3.5-5.1); PROTEIN - SERUM 6.2 g/dL (6.4-8.2); SODIUM 135 mmol/L (136-145); UREA NITROGEN 15 mg/dL (7-18); eGFR NON AFRICAN AMERICAN > 90 mL/min (90-120)
[2018-01-06 08:54] VITALS: BP 106/52
[2018-01-06 12:01] VITALS: BP 121/56
[2018-01-06] MEDS ORDERED: PLAVIX75 MG PO (14:08)
[2018-01-06] MEDS ORDERED: ASPIRIN81 MG PO (14:09)
[2018-01-06] MEDS ORDERED: CORDARONE200 MG PO (14:09)
[2018-01-06] MEDS ORDERED: ATROVENT 0.02%2.5 ML UPD (14:10)
[2018-01-06] MEDS ORDERED: PRAVACHOL20 MG PO (14:11)
[2018-01-06] MEDS ORDERED: PROTONIX40 MG PO (14:12)
[2018-01-06] MEDS ORDERED: FLORAJEN3 CAPS460 MG PO (14:13)
[2018-01-06] MEDS ORDERED: MIRALAX17 GM PO (14:13)
[2018-01-06] MEDS ORDERED: SENOKOT-S TABLE1 TAB PO (14:15)
[2018-01-06] MEDS ORDERED: SINGULAIR10 MG PO (14:16)
[2018-01-06] MEDS ORDERED: PULMICORT0.5 MG/21 INH (14:22)
[2018-01-06] MEDS ORDERED: MUCINEX DM ER1 EAC1 PO (14:22)
[2018-01-06] MEDS ORDERED: FLUTICASONE PRO16 GM NASAL (14:24)
[2018-01-06] MEDS ORDERED: SALINE NASAL SP45 ML NS (14:25)
[2018-01-06] MEDS ORDERED: LOVENOX40 MG/0.4 SC (14:35)
[2018-01-06 14:58] VITALS: BP 114/46
== END 2018-01-06 18:27 | DRG 246 ==
LOC: D.ICU 09:25 → D.M2 09:25
PROVIDERS: Internal Medicine Cardiovascular Disease; Internal Medicine Interventional Cardiology; Internal Medicine Pulmonary Disease
PROC: 027036Z Dilation of Coronary Artery, One Artery with Three Drug-eluting Intraluminal Devices, Percutaneous Approach (ICD-10-PCS; principal; 2017-12-30 16:30)
DX: I21.4 Non-ST elevation (NSTEMI) myocardial infarction (principal); I50.21 Acute systolic (congestive) heart failure; J96.01 Acute respiratory failure with hypoxia; J18.9 Pneumonia, unspecified organism; I42.9 Cardiomyopathy, unspecified; J81.1 Chronic pulmonary edema; J90 Pleural effusion, not elsewhere classified; J44.1 Chronic obstructive pulmonary disease with (acute) exacerbation; E11.9 Type 2 diabetes mellitus without complications; E55.9 Vitamin D deficiency, unspecified; I25.10 Atherosclerotic heart disease of native coronary artery without angina pectoris; R94.31 Abnormal electrocardiogram [ECG] [EKG]; Z87.891 Personal history of nicotine dependence; J30.9 Allergic rhinitis, unspecified; Z86.59 Personal history of other mental and behavioral disorders; I11.0 Hypertensive heart disease with heart failure; E78.5 Hyperlipidemia, unspecified; J47.9 Bronchiectasis, uncomplicated; R53.81 Other malaise; K59.00 Constipation, unspecified

== ENCOUNTER 2018-01-06 18:27 | Inpatient (IN) | payer MEDICARE ==
[~2018-01-06] VITALS: Ht 180.3 cm; Wt 75.0 kg
--- NOTE | ~2018-01-06 | RHP ---
PATIENT: WINSTON HART MEDICAL RECORD: [id number] ACCOUNT: [id number] LOCATION:[facility] : 43 ADMISSION DATE: 01/06/18 REHABILITATION HISTORY AND PHYSICAL EXAMINATION POST ADMISSION PHYSICIAN EXAMINATION POST-ADMISSION PHYSICAL EXAM AND HISTORY AND PHYSICAL DATE OF ADMISSION: 01/06/2018 ADMITTING DIAGNOSIS: CHF induced myopathy. HISTORY OF PRESENT ILLNESS: The patient is a 72-year-old gentleman admitted to the inpatient rehab with CHF myopathy, presented to the [place] ER with shortness of breath and was felt to be having an acute MT, was given thrombolysis and transferred here for further evaluation. He was seen by Dr. Hughes, felt to have a non-Q-wave MT with ST depression and mild elevation in troponin. Chest x-ray showed pulmonary edema. EKG continued to have significant ST depression, but no ST elevation. He was not having an acute ST elevation myocardial infarction, but his troponin was elevated, most likely from ischemia from the shortness of breath and pulmonary edema. He was clearly in heart failure. An echocardiogram was done, IV Lasix. He was started on Coreg, pravastatin, aspirin and Plavix. He will need cardiac catheterization in the future, but is not emergent at this time. Pulmonary was consulted to see if he may need acute intubation until pulmonary edema clears. He was admitted to the ICU and placed on BiPAP, titrating his O2 greater than 92%. On 01/01/2018, he was taken to the labor delivery rn for PTCA and stent placed to the left circumflex and left main and placed on an IMBP, a balloon pump. A bedside swallow eval showed oral dysphagia and speech therapy was recommended for dietary safety, swallowing and aspiration precautions. On 12/31/2017, chest x-ray showed a decrease in pulmonary edema, bilateral pleural effusions, interstitial infiltrates had improved. His ABG showed a pH of 7.44, a pCO2 of 45, a pO2 of 69 and a saturation of 94% on 3 liters. He was living at home with his sister. He was moderately independent with a cane, but says he lost it. He was able to perform his ADLs and ambulate, but fell recently. Currently, he is mod to max assist for ADLs and mobility. He has increased weakness in all extremities and shortness of breath on exertion. He has muscle weakness, proximal greater than distal. He has had prolonged immobility, making physical therapy difficult. He has ambulated 250 feet with a rolling walker, O2 at 6 liters and 30% assist from PT. He has decreased static standing balance, poor balance and decreased safety awareness. He wants to be able to return home at his prior level of functioning or better if any type of possibility of this. Comorbidities include essential hypertension, heart failure, respiratory failure, dysphagia, elevated troponin, bilateral pulmonary edema, coronary artery disease, ischemic heart disease, cardiomyopathy, interstitial infiltrates, bilateral pleural effusions, dyspnea, chest pain, leukocytosis, status post PTCA with stent to left circumflex and left main, new-onset diabetes, COPD, hyperlipidemia, vitamin D deficiency, history of seizures, asthma, paranoid schizophrenia, debility, fatigue, weakness and a recent fall. PAST MEDICAL HISTORY: Significant for hypertension, hyperlipidemia, coronary artery disease, CHF and COPD, new-onset diabetes and paranoid schizophrenia. PAST SURGICAL HISTORY: Please see previous charts. HISTORY AND PHYSICAL [id number] WINSTON HART ALLERGIES: ASACOL AND CARLOS ENRIQUE. MEDICATIONS: Current medications include Dyazide 37.5/25 one p.o. daily, Protonix 40 mg daily, Floranex 460 mg daily. He is on Atrovent and albuterol updrafts, Flonase 2 sprays daily, Lovenox 40 mg subQ daily, Plavix 75 mg daily, Zyrtec 10 mg daily, Pulmicort 0.5 mg b.i.d., aspirin chewable 81 mg daily, Desyrel 100 mg at bedtime, saline nasal spray q.i.d., Senokot 1 tab b.i.d., Pravachol 20 mg at bedtime, polyethylene glycol 17 grams b.i.d., Zyprexa 10 mg b.i.d., Singulair 10 mg at bedtime, Mucinex D 1 tab b.i.d., and Cordarone 200 mg b.i.d. HABITS: No current alcohol or tobacco use. FAMILY HISTORY: Noncontributory. SOCIAL HISTORY: The patient hopes to return back home with his sister and get back to his prior level of functioning. REVIEW OF SYSTEMS: GENERAL: He does complain of weakness and fatigue. HEENT: Denies cold, cough, or congestion. CARDIOVASCULAR: He denies chest pain. PHYSICAL EXAMINATION: VITAL SIGNS: Stable, afebrile. GENERAL: An elderly gentleman in no acute distress, alert upon exam. HEENT: Normocephalic and atraumatic. Mucosa moist. NECK: Supple, with no lymphadenopathy. LUNGS: Clear at this time. HEART: Has a regular rate and rhythm. ABDOMEN: Benign. EXTREMITIES: No clubbing, cyanosis or edema. NEUROLOGIC: Does have noted weakness. ASSESSMENT: This is a 72-year-old gentleman admitted to the rehab with a working diagnosis of congestive heart failure induced myopathy complicated by PTCA and stent placement during his stay. The patient has potential to make improvement. We instituted the following multidisciplinary therapies include, but not limited to physical, occupational, respiratory, speech, nutritional services, prosthetics and orthotics. Given his complex medical condition and risk for more complications, rehabilitation services cannot be provided at a low level of care such as a skilled nurse facility. PLAN: 1. Admit to [facility] rehab for intensive inpatient therapy to include the following disciplines: A. Physical therapy to improve gait, all transfer skills and bed mobility to a modified independent level. B. Occupational therapy to improve activities of daily living to a modified independent level. C. Case management to assist with discharge planning and placement options. D. Nutrition to assist with nutritional needs. E. Rehabilitation nursing to assist in monitoring the patient's underlying medical conditions and to assist with any type of bowel or bladder management. HISTORY AND PHYSICAL [id number] WINSTON HART 2. The patient's current medication and medical care will be continued. 3. The patient will be placed on standard fall precautions. 4. The patient's estimated length of stay is approximately 7-10 days. 5. I am going to check blood work on him in the a.m. We will go ahead and discuss him with care team and get his FIM scores updated tomorrow. TRANSINT:[id number] Voice Confirmation ID: [id number] DOCUMENT ID: [id number] DALLIN notes whether there has been none or any medical/functional change since admission: - No change since prescreen. DALLIN attests patient continues to be appropriate for IRF: - Continues to be appropriate. STEVEN MEEK MD at 0753 CC: [id number] DICTATION DATE: 01/07/18 0947 [employer] TEACHER: 01/07/18 1149 ADM IN [facility] [address] [id number]
[~2018-01-06 18:27] MED LIST changes: +ASPIRIN81 MG PO; +ATROVENT 0.02%2.5 ML UPD; +CORDARONE200 MG PO; +FLORAJEN3 CAPS460 MG PO; +FLUTICASONE PRO16 GM NASAL; +LOVENOX40 MG/0.4 SC; +MIRALAX17 GM PO; +MUCINEX DM ER1 EAC1 PO; +PLAVIX75 MG PO; +PRAVACHOL20 MG PO; +PROTONIX40 MG PO; +PULMICORT0.5 MG/21 INH; +SALINE NASAL SP45 ML NS; +SENOKOT-S TABLE1 TAB PO; +SINGULAIR10 MG PO; +TERAZOSIN HCL2 MG
[2018-01-06 22:24] VITALS: BP 116/59; BMI 25.0
[2018-01-07 08:00] VITALS: BP 129/66
[2018-01-07 09:04] VITALS: Ht 180.3 cm; Wt 75.0 kg
[2018-01-07 11:40] LABS: BASOPHILS 0.1 % (0-2); EOSINOPHILS 4.2 % (0-7); HEMATOCRIT 28.8 % (42.0-54.0); HEMOGLOBIN 9.5 g/dL (13.5-17.5); IMMATURE GRANULOCYTES 0.5 % (0-5); LYMPHOCYTES 11.6 % (15-50); MCH 31.1 pg (26.0-34.0); MCV 94.4 fL (80.0-100.0); MEAN PLATELET VOLUME 9.5 fL (7.4-10.4); MONOCYTES 10.9 % (2-11); NEUTROPHILS 72.7 % (40-80); PLATELET COUNT 229 10x3/uL (130-400); RBC 3.05 10x6/uL (4.20-6.10); RDW 13.6 % (11.5-14.5)
[2018-01-07 11:48] LABS: APPEARANCE CLEAR (CLEAR); BILIRUBIN NEGATIVE (NEGATIVE); COLOR YELLOW (YELLOW); GLUCOSE NEGATIVE (NEGATIVE); KETONE NEGATIVE (NEGATIVE); NITRITE NEGATIVE (NEGATIVE); PROTEIN NEGATIVE (NEGATIVE); SPECIFIC GRAVITY 1.015 (1.005-1.020)
[2018-01-07 11:50] LABS: BACTERIA FEW /hpf (NONE SEEN); EPITHELIAL CELLS 0-5 /hpf (0-5); MUCUS <1+ /lpf (NONE SEEN)
[2018-01-07 12:03] LABS: CALC OSMOLALITY 275 mosm/kg (275-300); CALCIUM 8.4 mg/dL (8.5-10.1); CHLORIDE - SERUM 99 mmol/L (98-107); CREATININE - SERUM 0.9 mg/dL (0.6-1.3); GLUCOSE 112 mg/dL (74-106); POTASSIUM - SERUM 4.3 mmol/L (3.5-5.1); SODIUM 137 mmol/L (136-145); UREA NITROGEN 16 mg/dL (7-18); eGFR NON AFRICAN AMERICAN 88 mL/min (90-120)
[2018-01-07 20:15] VITALS: BP 125/58
[2018-01-08 08:00] VITALS: BP 122/63
[2018-01-08 19:00] VITALS: BP 132/64
[2018-01-09 08:00] VITALS: BP 114/55
[2018-01-09 13:19] LABS: HEPATITIS C ANTIBODY 0.1 (0.0-0.9)
[2018-01-09 19:00] VITALS: BP 123/55
[2018-01-10 06:16] LABS: HEPATITIS BE ANTIGEN Negative (Negative)
[2018-01-10 07:11] LABS: BASOPHILS 0.2 % (0-2); EOSINOPHILS 4.4 % (0-7); HEMATOCRIT 28.5 % (42.0-54.0); HEMOGLOBIN 9.1 g/dL (13.5-17.5); IMMATURE GRANULOCYTES 0.6 % (0-5); LYMPHOCYTES 13.2 % (15-50); MCH 29.8 pg (26.0-34.0); MCHC 31.9 g/dL (31.0-37.0); MCV 93.4 fL (80.0-100.0); MEAN PLATELET VOLUME 9.6 fL (7.4-10.4); NEUTROPHILS 72.6 % (40-80); RBC 3.05 10x6/uL (4.20-6.10); RDW 13.7 % (11.5-14.5); WBC 8.6 10x3/uL (4.8-10.8)
[2018-01-10 07:12] LABS: PLATELET COUNT 276 10x3/uL (130-400)
[2018-01-10 07:29] LABS: CALC OSMOLALITY 272 mosm/kg (275-300); CALCIUM 8.7 mg/dL (8.5-10.1); CARBON DIOXIDE 34.4 mmol/L (21.0-32.0); CHLORIDE - SERUM 97 mmol/L (98-107); CREATININE - SERUM 0.7 mg/dL (0.6-1.3); GLUCOSE 116 mg/dL (74-106); POTASSIUM - SERUM 4.6 mmol/L (3.5-5.1); SODIUM 134 mmol/L (136-145); UREA NITROGEN 23 mg/dL (7-18); eGFR NON AFRICAN AMERICAN > 90 mL/min (90-120)
[2018-01-10 08:00] VITALS: BP 120/51
[2018-01-10 19:00] VITALS: BP 126/58
[2018-01-11 20:00] VITALS: BP 130/61
[2018-01-12 07:51] VITALS: BP 123/59
[2018-01-12 19:50] VITALS: BP 137/62
[2018-01-13 07:19] LABS: BASOPHILS 0.1 % (0-2); EOSINOPHILS 5.1 % (0-7); HEMATOCRIT 29.5 % (42.0-54.0); HEMOGLOBIN 9.2 g/dL (13.5-17.5); IMMATURE GRANULOCYTES 0.4 % (0-5); MCH 29.4 pg (26.0-34.0); MCHC 31.2 g/dL (31.0-37.0); MCV 94.2 fL (80.0-100.0); MEAN PLATELET VOLUME 9.5 fL (7.4-10.4); MONOCYTES 7.2 % (2-11); NEUTROPHILS 71.2 % (40-80); PLATELET COUNT 301 10x3/uL (130-400); RBC 3.13 10x6/uL (4.20-6.10); RDW 13.9 % (11.5-14.5); WBC 8.3 10x3/uL (4.8-10.8)
[2018-01-13 07:43] LABS: CALC OSMOLALITY 271 mosm/kg (275-300); CALCIUM 8.4 mg/dL (8.5-10.1); CARBON DIOXIDE 36.8 mmol/L (21.0-32.0); CHLORIDE - SERUM 99 mmol/L (98-107); CREATININE - SERUM 0.9 mg/dL (0.6-1.3); GLUCOSE 107 mg/dL (74-106); POTASSIUM - SERUM 4.3 mmol/L (3.5-5.1); SODIUM 135 mmol/L (136-145); UREA NITROGEN 18 mg/dL (7-18); eGFR NON AFRICAN AMERICAN 88 mL/min (90-120)
[2018-01-13 08:23] VITALS: BP 127/64
[2018-01-13 19:00] VITALS: BP 122/52
[2018-01-14 08:28] VITALS: BP 127/60
[2018-01-14 19:00] VITALS: BP 131/56
[2018-01-15 07:01] LABS: BASOPHILS 0.3 % (0-2); EOSINOPHILS 4.1 % (0-7); HEMATOCRIT 30.6 % (42.0-54.0); HEMOGLOBIN 9.6 g/dL (13.5-17.5); IMMATURE GRANULOCYTES 0.3 % (0-5); LYMPHOCYTES 14.4 % (15-50); MCH 29.4 pg (26.0-34.0); MCHC 31.4 g/dL (31.0-37.0); MCV 93.6 fL (80.0-100.0); MEAN PLATELET VOLUME 9.8 fL (7.4-10.4); MONOCYTES 8.1 % (2-11); NEUTROPHILS 72.8 % (40-80); PLATELET COUNT 325 10x3/uL (130-400); RBC 3.27 10x6/uL (4.20-6.10); RDW 13.9 % (11.5-14.5); WBC 7.6 10x3/uL (4.8-10.8)
[2018-01-15 07:15] LABS: CALC OSMOLALITY 273 mosm/kg (275-300); CALCIUM 8.7 mg/dL (8.5-10.1); CARBON DIOXIDE 34.7 mmol/L (21.0-32.0); CHLORIDE - SERUM 100 mmol/L (98-107); CREATININE - SERUM 0.9 mg/dL (0.6-1.3); GLUCOSE 105 mg/dL (74-106); POTASSIUM - SERUM 4.2 mmol/L (3.5-5.1); SODIUM 136 mmol/L (136-145); UREA NITROGEN 18 mg/dL (7-18); eGFR NON AFRICAN AMERICAN 88 mL/min (90-120)
[2018-01-15 08:19] VITALS: BP 128/56
[2018-01-15 19:00] VITALS: BP 126/54
[2018-01-16 08:25] VITALS: BP 127/61
[2018-01-16 19:00] VITALS: BP 124/56
[2018-01-17 05:54] LABS: BASOPHILS 0.5 % (0-2); EOSINOPHILS 5.3 % (0-7); HEMATOCRIT 31.6 % (42.0-54.0); IMMATURE GRANULOCYTES 0.2 % (0-5); LYMPHOCYTES 19.1 % (15-50); MCH 29.3 pg (26.0-34.0); MCHC 31.6 g/dL (31.0-37.0); MCV 92.7 fL (80.0-100.0); MEAN PLATELET VOLUME 9.7 fL (7.4-10.4); MONOCYTES 9.8 % (2-11); NEUTROPHILS 65.1 % (40-80); PLATELET COUNT 343 10x3/uL (130-400); RBC 3.41 10x6/uL (4.20-6.10); RDW 14.1 % (11.5-14.5); WBC 6.5 10x3/uL (4.8-10.8)
[2018-01-17 06:12] LABS: ANION GAP 6.7 mmol/L (8-16); CALCIUM 8.7 mg/dL (8.5-10.1); CARBON DIOXIDE 34.5 mmol/L (21.0-32.0); CREATININE - SERUM 1.1 mg/dL (0.6-1.3); POTASSIUM - SERUM 4.2 mmol/L (3.5-5.1)
[2018-01-17 08:14] VITALS: BP 130/67
== END 2018-01-17 15:31 | disposition home health service (06) | DRG 91 ==
LOC: D.REHAB 18:27
PROVIDERS: Emergency Medicine; Internal Medicine
DX: G72.89 Other specified myopathies (principal); I50.21 Acute systolic (congestive) heart failure; J96.01 Acute respiratory failure with hypoxia; J81.1 Chronic pulmonary edema; I42.9 Cardiomyopathy, unspecified; J90 Pleural effusion, not elsewhere classified; F20.0 Paranoid schizophrenia; I11.0 Hypertensive heart disease with heart failure; R13.11 Dysphagia, oral phase; I25.10 Atherosclerotic heart disease of native coronary artery without angina pectoris; E11.9 Type 2 diabetes mellitus without complications; E78.5 Hyperlipidemia, unspecified; J44.9 Chronic obstructive pulmonary disease, unspecified; E55.9 Vitamin D deficiency, unspecified; J45.909 Unspecified asthma, uncomplicated; F60.1 Schizoid personality disorder; R53.81 Other malaise; R53.83 Other fatigue; R53.1 Weakness; R06.00 Dyspnea, unspecified; Z95.5 Presence of coronary angioplasty implant and graft; D72.829 Elevated white blood cell count, unspecified